=== PATIENT | female | born 1945 | race Asian ===

== ENCOUNTER → 2018-03-21 13:50 | Outpatient (REF) | payer MEDICARE, OTHER, SELFPAY | LOC: LAB 13:50 | PROVIDERS: Family Provider Family Medicine; PCP Family Medicine; Visit Provider Otolaryngology | DX: J32.0 Chronic maxillary sinusitis (principal); R51 Headache | CPT/HCPCS: 87070; 87077; 87147; 87186; 87205 ==

== ENCOUNTER → 2018-10-01 12:58 | Outpatient (CLI) | payer MEDICARE, OTHER, SELFPAY ==
--- NOTE | 2018-10-01 | DI.MG.S_ITS ---
BILATERAL DIGITAL SCREENING MAMMOGRAM 3D/2D WITH CAD: 10/01/2018 CLINICAL: Routine screening. Comparison is made to exams dated: 08/11/2017 mammogram, 07/28/2016 mammogram, and 06/18/2015 mammogram - [facility]. The tissue of both breasts is heterogeneously dense. This may lower the sensitivity of mammography. Current study was also evaluated with a Computer Aided Detection (CAD) system. There are benign post operative findings in the right breast. No significant masses, calcifications, or other findings are seen in either breast. There has been no significant interval change. IMPRESSION: There is no mammographic evidence of malignancy. A 1 year screening mammogram is recommended. This exam was interpreted at Station ID: [id number]. NOTE: For mammograms, a report in lay terms will be sent to the patient. Approximately 15% of breast malignancies will not be visualized mammographically. In the management of a palpable breast mass, a negative mammogram must not discourage biopsy of a clinically suspicious lesion. Electronically Signed By: Julien judd/ceci:10/01/2018 17:35:49 letter sent: Normal Exam ACR BI-RADS Category 2: Benign Finding(s) 3342F
== END ==
PROVIDERS: Family Provider Family Medicine; PCP Family Medicine; Visit Provider Family Medicine
DX: Z12.31 Encounter for screening mammogram for malignant neoplasm of breast (principal)
CPT/HCPCS: 77063; 77067

== ENCOUNTER → 2019-07-04 16:41 | Outpatient (CLI) | payer MEDICARE, OTHER, SELFPAY ==
--- NOTE | 2019-07-04 | DI.RAD.S_ITS ---
PROCEDURE: XR HIP W PEL IF DONE RT 2V INDICATIONS: RIGHT HIP PAIN TECHNIQUE: 2 views of the hip were acquired. COMPARISON: [facility], [place], [id number] W PEL IF PERFORMED, 07/28/2016, 11:57. [facility], [place], HIP 2V RIGHT, 04/01/2014, 12:48. FINDINGS: Bones: No fractures or dislocations. No suspicious bony lesions. The visualized pelvic ring appears intact. Mild right hip and sacroiliac joint degeneration. Soft tissues: No suspicious soft tissue calcifications or masses. 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 Dictated by: Nubia Bach M.D. on 07/04/2019 at 17:46 Approved by: Nubia Bach M.D. on 07/04/2019 at 18:50
== END ==
PROVIDERS: PCP Family Medicine; Visit Provider Family Medicine
DX: M25.551 Pain in right hip (principal); M16.11 Unilateral primary osteoarthritis, right hip; M47.898 Other spondylosis, sacral and sacrococcygeal region
CPT/HCPCS: 73502

== ENCOUNTER → 2019-10-08 14:27 | Outpatient (CLI) | payer MEDICARE, OTHER, SELFPAY ==
--- NOTE | 2019-10-08 | DI.MG.S_ITS ---
BILATERAL DIGITAL SCREENING MAMMOGRAM 3D/2D WITH CAD: 10/08/2019 CLINICAL: Routine screening. Comparison is made to exams dated: 10/01/2018 mammogram, 08/11/2017 mammogram, and 07/28/2016 mammogram - [facility]. There are scattered fibroglandular elements in both breasts. Current study was also evaluated with a Computer Aided Detection (CAD) system. There are benign post operative findings in the right breast. No significant masses, calcifications, or other findings are seen in either breast. There has been no significant interval change. IMPRESSION: There is no mammographic evidence of malignancy. A 1 year screening mammogram is recommended. This exam was interpreted at Station ID: [id number]. NOTE: For mammograms, a report in lay terms will be sent to the patient. Approximately 15% of breast malignancies will not be visualized mammographically. In the management of a palpable breast mass, a negative mammogram must not discourage biopsy of a clinically suspicious lesion. Electronically Signed By: Kitty mercedes/ceci:10/08/2019 17:06:18 letter sent: Normal Exam ACR BI-RADS Category 2: Benign Finding(s) 3342F
== END ==
PROVIDERS: PCP Family Medicine; Visit Provider Family Medicine
DX: Z12.31 Encounter for screening mammogram for malignant neoplasm of breast (principal)
CPT/HCPCS: 77063; 77067

== ENCOUNTER → 2020-08-21 13:44 | Outpatient (CLI) | payer MEDICARE, OTHER, SELFPAY ==
--- NOTE | 2020-08-21 | DI.CT.S_ITS ---
PROCEDURE: CT SINUS SCREEN WO CON INDICATIONS: Headache TECHNIQUE: Noncontrast 3.0 mm axial images acquired from the frontal sinuses to the mid-sella, with coronal and sagittal reformats. For radiation dose reduction, the following was used: automated exposure control, adjustment of mA and/or kV according to patient size. COMPARISON: None. FINDINGS: Image quality: Excellent. Maxillary Sinuses: Postsurgical changes of right maxillary side es medial antrostomy, uncinectomy, and adjacent anterior ethmoid air cell resection/fenestration. Mild mucosal thickening in the right maxillary sinus along with pronounced thickening of the right maxillary sinus kiser and volume loss in the right maxillary sinus. No fluid level. The left maxillary sinus is clear. Ethmoid Air Cells: No bony remodeling or destruction. Sinuses are clear. Sphenoid Sinuses: No bony remodeling or destruction. Sinuses are clear. Frontal Sinuses: No bony remodeling or destruction. Sinuses are clear. Ostiomeatal Complexes: Ostiomeatal complexes are patent. No Justina cells. Miscellaneous: Visualized intra-orbital contents are normal. Left-sided tobias bullosa. Mild S shaped nasal septal deviation. IMPRESSION: Minimal right maxillary sinus mucosal thickening with no evidence of acute sinusitis. Postsurgical changes of prior right maxillary sinus medial antrostomy and uncinectomy, with osseous findings indicative of chronic sinusitis. Dictated by: David Velasquez M.D. on 08/21/2020 at 14:23 Approved by: David Velasquez M.D. on 08/21/2020 at 14:25
--- NOTE | 2020-08-21 | DI.CT.S_ITS ---
PROCEDURE: CT HEAD/BRAIN WO CON INDICATIONS: Headache TECHNIQUE: Noncontrast 4.5 mm thick angled axial sections acquired from the foramen magnum to the vertex, with coronal and sagittal reformats. For radiation dose reduction, the following was used: automated exposure control, adjustment of mA and/or kV according to patient size. COMPARISON: 08/29/[address] FINDINGS: Image quality: Excellent. CSF spaces: Basal cisterns are patent. No extra-axial fluid collections. Ventricles are normal in size and shape. Brain: No midline shift. No intracranial masses or hemorrhage. Hernandez-white matter interface is normal. Skull and face: Calvarium and visualized facial bones are intact, without suspicious lesions. Sinuses: Visualized sinuses and mastoids are clear where visualized. IMPRESSION: No acute intracranial finding. Dictated by: David Velasquez M.D. on 08/21/2020 at 14:22 Approved by: David Velasquez M.D. on 08/21/2020 at 14:23
== END ==
PROVIDERS: PCP Family Medicine; Referring Provider Family Medicine; Visit Provider Family Medicine
DX: R51.9 Headache, unspecified (principal); J32.0 Chronic maxillary sinusitis; J34.2 Deviated nasal septum
CPT/HCPCS: 70450; 70486

== ENCOUNTER → 2020-12-11 14:27 | Outpatient (CLI) | payer MEDICARE, OTHER, SELFPAY ==
--- NOTE | 2020-12-11 14:29 | DI.MG.S_ITS ---
BILATERAL DIGITAL SCREENING MAMMOGRAM 3D/2D WITH CAD: 12/11/2020 CLINICAL: Routine screening. Comparison is made to exams dated: 10/08/2019 mammogram, 10/01/2018 mammogram, and 08/11/2017 mammogram - [facility]. There are scattered fibroglandular elements in both breasts. Current study was also evaluated with a Computer Aided Detection (CAD) system. There are benign post operative findings in the right breast. No significant masses, calcifications, or other findings are seen in either breast. There has been no significant interval change. IMPRESSION: BENIGN There is no mammographic evidence of malignancy. A 1 year screening mammogram is recommended. This exam was interpreted at Station ID: [id number]. NOTE: For mammograms, a report in lay terms will be sent to the patient. Approximately 15% of breast malignancies will not be visualized mammographically. In the management of a palpable breast mass, a negative mammogram must not discourage biopsy of a clinically suspicious lesion. Electronically Signed By: Obey leach/ceci:12/11/2020 14:54:51 letter sent: Normal Exam ACR BI-RADS Category 2: Benign Finding(s) 3342F
== END ==
PROVIDERS: PCP Family Medicine; Referring Provider Family Medicine; Visit Provider Family Medicine
DX: Z12.31 Encounter for screening mammogram for malignant neoplasm of breast (principal)
CPT/HCPCS: 77063; 77067

== ENCOUNTER 2020-12-18 16:35 | Emergency (ER) | payer MEDICARE, OTHER, SELFPAY ==
[2020-12-18 16:52] VITALS: PULSE 91; RESP 20; TEMP 36.5; O2SAT 99; BMI 27.5
--- NOTE | 2020-12-18 16:58 | DI.RAD.S_ITS ---
PROCEDURE: XR SHOULDER LT MIN 2V INDICATIONS: fall TECHNIQUE: 3 views of the shoulder were acquired. COMPARISON: None. FINDINGS: Bones: No fractures or dislocations. Mild to moderate acromioclavicular joint and glenohumeral joint osteoarthritic changes are seen. No suspicious bony lesions. Visualized ribs appear intact. Soft tissues: No suspicious soft tissue calcifications. IMPRESSION: No gross acute left shoulder fracture or dislocation. [id number]-[id number] left shoulder joint osteoarthritis. Dictated by: Malik Cadena M.D. on 12/18/2020 at 17:45 Approved by: Malik Cadena M.D. on 12/18/2020 at 17:45
[2020-12-18 17:53] VITALS: PULSE 70
--- NOTE | 2020-12-18 18:01 | ED_ITS ---
HPI - Extremity Injury (Upper) General Chief Complaint: Extremity Injury, Upper Stated Complaint: Fall last night, left shoulder pain Time Seen by Provider: 12/18/20 18:01 Source: patient Mode of arrival: Family Vehicle Limitations: no limitations History of Present Illness HPI narrative: 75-year-old female comes emergency department with complaint of left shoulder pain. Patient states yesterday she tripped falling onto her left shoulder. She denies hitting her head. She has had some mild neck pain. Patient states she has pain with any movement of her shoulder particularly when she tries to abduct her shoulder or extended above her head. Patient denies any pain radiating down her arm. No numbness, tingling or weakness. No difficulty with upholstery sewer. She denies any other injuries. She did try Tylenol today at 3:00 p.m. with minimal improvement. She is a insulin-dependent diabetic, takes hypertensive and cholesterol medication has not prior history of bypass and takes an aspirin 81 mg daily. Patient has multiple allergies to pain medications. Related Data Home Medications Medication Instructions Recorded Confirmed CALCIUM/CHOLECALCIFEROL (CALCIUM 1 ctb PO Q DAY #0 11/25/11 10/08/19 WITH D3 500MG/400UNITS) VITAMIN D (Vitamin D3) 1,000 unit PO QDAY #0 11/25/11 10/08/19 aspirin 81 mg PO QDAY #0 11/25/11 10/08/19 INSULIN LISPRO (#HUMALOG (SHORT See Rx Instructions .ROUTE 05/18/12 10/08/19 ACTING)) .COMPLEX #0 METFORMIN HCL (GLUCOPHAGE) 500 mg PO TID #0 05/18/12 10/08/19 Loratadine 10 mg PO Q DAY #0 05/23/13 10/08/19 naproxen sodium [Aleve] 220 mg PO Q DAY #0 05/23/13 10/08/19 omeprazole magnesium [Prilosec OTC] 20 mg PO #0 03/20/17 10/08/19 metoprolol tartrate 25 mg tablet 25 mg PO BID #0 tab 02/13/18 10/08/19 pravastatin 20 mg tablet 10 mg PO HS #0 tab 09/25/18 10/08/19 dulaglutide 0.75 mg/0.5 mL 0.75 mg SUBCUT QWEEK 10/08/19 10/08/19 subcutaneous pen injector Allergies Allergy/AdvReac Type Severity Reaction Status Date / Time adhesive [ADHESIVE] Allergy Mild RASH Verified 12/18/20 16:57 gabapentin [GABAPENTIN] Allergy Mild Verified 12/18/20 16:57 propoxyphene Allergy Mild Verified 12/18/20 16:57 tramadol [TRAMADOL] Allergy Mild Verified 12/18/20 16:57 hydrocodone [HYDROCODONE] AdvReac Unknown VOMITING Verified 12/18/20 16:57 oxycodone [OXYCODONE] AdvReac Unknown LIGHT Verified 12/18/20 16:57 HEADED Review of Systems Review of Systems ROS Unobtainable: All systems reviewed & are unremarkable except as noted in HPI and below Patient History Medical History (Updated 12/18/20 @ 18:12 by Gauri Souza DO) Anemia Ankle pain Asthma Back pain Cardiovascular disease (with mention of arteriosclerosis) Chronic cough Coronary artery disease involving coronary bypass graft Diabetes 1.5, managed as type 2 Foot pain GERD (gastroesophageal reflux disease) Gout H/O diverticulitis of colon H/O headache Hemorrhoids HPV test positive Human papilloma virus Hx of abnormal cervical Pap smear Hypertension Osteoarthritis Overweight Positive PPD Postmenopausal Recurrent sinusitis Restless leg syndrome Shoulder pain Thalassemia Surgical History Anesthesia H/O colonoscopy H/O LEEP (~2012) History of open heart surgery S/P triple vessel bypass Status post breast biopsy Family History Brother Diabetes mellitus Hypertension Brother Diabetes mellitus Hypertension Mother Diabetes mellitus Heart disease Hypertension Social History household members: spouse Smoking Status: Never smoker alcohol intake: never Smoking Status: Never smoker alcohol intake frequency: 0-2 drinks per day Substance Use Type: does not use Exam Narrative Exam Narrative: GEN: CPatient appears in mild distress. HEAD: No evidence of trauma, no raccoon/Milligan sign. NECK: Nontender, painless range of motion, trachea midline Negative Nexus criteria, there is no mid line tenderness, distracting injury, altered mental status, neuro deficit, recent EtOH. EYES: PERRLA, EOMI ENT: External inspection normal, trachea is midline, airway is normal and with normal occlusion. RESP: Chest is nontender and has symmetric movement, no ecchymosis, breath sounds are normal no crackles, wheezes or rales CVS: Heart sounds are normal, no murmur noted, No JVD. ABG/GI: Nontender, soft, normal bowel sounds, no distention, no organomegaly. NEURO: Oriented AOx3, neuro is grossly intact, sensation and motor is normal all 4 extremities moving, cranial nerves II through XII are intact, GCS is 15 PSYCH: Normal mood and affect SKIN: Intact, warm and dry, no crepitus and without decubitus BACK: No CVA tenderness, no vertebral tenderness, no step-off's, no crepitus EXT: Patient has tenderness over the left AC joint on her shoulder. No other bony tenderness of the clavicle, scapula, or left upper extremity. Patient has full range of motion of the fingers, wrist and elbow. 5/5 muscle strength with pushing pulling system validation engineer are equal bilaterally. With 2+ radial pulse bilaterally. Patient has a erythematous abrasion, no warmth to the area. No significant swelling appreciated. hips are nontender, no pedal edema, normal color and temperature, normal range of motion of extremities with normal tendon exam, 2+ pulses in all four extremities Initial Vital Signs Initial Vital Signs: Vital Signs Temperature 97.7 F 12/18/20 16:52 Pulse Rate 91 H 12/18/20 16:52 Respiratory Rate 20 12/18/20 16:52 Pulse Oximetry 99 12/18/20 16:52 Course Orders Ordered: ED Orders 12/18/20 16:58 XR shoulder LT min 2V Stat Vital Signs Vital signs: Vital Signs - 8 hr 12/18/20 16:52 12/18/20 17:53 Temperature 97.7 F Pulse Rate 91 H Pulse Rate [Left Radial] 70 Respiratory Rate 20 Pulse Oximetry 99 MDM - Extremity Injury (Upper) Imaging Data Extremity x-ray #1: Radiologist's Impression: [address] [id number] ReportSigned Patient: Kathy Lemon RMR#: [id number]: 6Acct:[id number]/Sex: 75 / FDate of Service: 12/18/20Loc: EDAccession Number: [id number] Procedure: XR shoulder LT min 2V Ordering Provider: Gauri Souza D.O. PROCEDURE: XR SHOULDER LT MIN 2V INDICATIONS: fall TECHNIQUE: 3 views of the shoulder were acquired. COMPARISON: None. FINDINGS: Bones: No fractures or dislocations. Mild to moderate acromioclavicular joint and glenohumeral joint osteoarthritic changes are seen. No suspicious bony lesions. Visualized ribs appear intact. Soft tissues: No suspicious soft tissue calcifications. IMPRESSION: No gross acute left shoulder fracture or dislocation. [id number] left shoulder joint osteoarthritis. Dictated by: Malik Cadena M.D. on 12/18/2020 at 17:45 Approved by: Malik Cadena M.D. on 12/18/2020 at 17:45 [facility] Narrative Medical decision making narrative: 75-year-old female with mechanical ground level fall. Patient does not have any acute abnormalities on imaging. She does have arthritic changes noted. Patient is tender and we discussed she could potentially have a muscle tear or ligamentous or tendon injury and if she continues to have symptoms should follow up with primary care. Patient plans to try Tylenol and ibuprofen or Aleve we discussed she should not take to NSAIDs at the same time sling. Patient is aware to continue with her range of motion. If she is asymptomatic after several days she can restart her normal activities. Discharge Plan Departure Patient Disposition: Home Clinical Impression: Left shoulder pain Instructions: DI for Shoulder Pain Activity Restrictions/Additional Instructions: Follow up with your physician in the next 7-10 days if her symptoms have not improved. You may take Tylenol up to a 1000 mg every 8 hours as needed for pain. You may take this with Aleve twice daily. You may use heat and or alternate with ice as needed. Elevated affected body part to decrease swelling. OK to use ice pack on the affected body part. Use for 15-20 minutes each time, for 5-6x per day. If you develop worsening pain, numbness, tingling, discoloration of the affected body part, adjust the sling and either see your doctor for an urgent re-assessment, or return to the Emergency Department. Return to the Emergency Department for any new or worsening symptoms. Return for fevers, rapidly worsening shoulder pain, new numbness, tingling or weakness, new redness, swelling or inability usually extremity or other new or worsening symptoms Prescriptions: No Action VITAMIN D (Vitamin D3) 1,000 unit PO QDAY Qty: 0 RF: 0 CALCIUM/CHOLECALCIFEROL (CALCIUM WITH D3 500MG/400UNITS) 1 ctb PO Q DAY Qty: 0 RF: 0 aspirin 81 MG tablet,delayed release (DR/EC) 81 mg PO QDAY Qty: 0 RF: 0 METFORMIN HCL (GLUCOPHAGE) 500 mg PO TID Qty: 0 RF: 0 INSULIN LISPRO (#HUMALOG (SHORT ACTING)) bottle See Rx Instructions .ROUTE .COMPLEX Qty: 0 RF: 0 Loratadine 10 mg PO Q DAY Qty: 0 RF: 0 naproxen sodium [Aleve] 220 MG tablet 220 mg PO Q DAY Qty: 0 RF: 0 omeprazole magnesium [Prilosec OTC] 20 MG tablet,delayed release (DR/EC) 20 mg PO Qty: 0 RF: 0 metoprolol tartrate 25 mg tablet 25 mg PO BID Qty: 0 RF: 0 pravastatin [Pravachol] 20 mg tablet 10 mg PO HS Qty: 0 RF: 0 Trulicity 0.75 mg/0.5 mL pen injector 0.75 mg SUBCUT QWEEK RF: 0 Referrals: Gerson Marquez MD [Primary Care Provider] -
[2020-12-18 18:20] VITALS: PULSE 70; RESP 17; O2SAT 99
== END 2020-12-18 18:21 | disposition home or self-care (01) ==
PROVIDERS: Emergency Provider Emergency Medicine; PCP Family Medicine
DX: M25.512 Pain in left shoulder (principal); M54.2 Cervicalgia; W19.XXXA Unspecified fall, initial encounter
CPT/HCPCS: 73030; 99283

== ENCOUNTER → 2022-01-03 12:07 | Outpatient (CLI) | payer MEDICARE, OTHER, SELFPAY ==
--- NOTE | 2022-01-03 12:13 | DI.RAD.S_ITS ---
PROCEDURE: XR CHEST 2V INDICATIONS: shortness of breath, cellulitis of left upper limb TECHNIQUE: 2 views of the chest were acquired. COMPARISON: None. FINDINGS: Surgical changes and devices: Status post CABG procedure. Lungs and pleura: Lungs are clear. No pleural effusions or pneumothorax. Mediastinum: Mediastinal contours are normal. Heart size is normal. Bones and chest wall: No suspicious bony abnormalities. Soft tissues appear unremarkable. No soft tissue gas identified. IMPRESSION: No acute cardiopulmonary disease process. Dictated by: Shama Lockhart MD, PhD on 01/03/2022 at 15:58 Approved by: Shama Lockhart MD, PhD on 01/03/2022 at 15:58
--- NOTE | 2022-01-03 12:13 | DI.RAD.S_ITS ---
PROCEDURE: XR HAND LT MIN 3V INDICATIONS: cellulitis of left upper limb TECHNIQUE: 3 views of the hand(s) acquired. COMPARISON: None. FINDINGS: Bones: No fractures or dislocations. Carpal bones are normally aligned. No suspicious bony lesions. Soft tissues: No suspicious soft tissue calcifications. IMPRESSION: No acute fracture. No osseous lesion. If symptoms and/or clinical suspicion for pathology persist, further assessment with repeat, or advanced imaging (e.g., CT, MRI, or bone scan) may be helpful for further assessment. Dictated by: Anamika Jones M.D. on 01/03/2022 at 13:22 Approved by: Anamika Jones M.D. on 01/03/2022 at 13:23
== END ==
PROVIDERS: PCP Family Medicine; Referring Provider Family Medicine; Visit Provider Family Medicine
DX: L03.114 Cellulitis of left upper limb (principal); R06.02 Shortness of breath
CPT/HCPCS: 71046; 73130

== ENCOUNTER 2022-02-02 20:18 | Emergency (ER) | payer MEDICARE, OTHER, SELFPAY ==
[2022-02-02] VITALS (9 sets, daily range): BP systolic 121–178; BP diastolic 63–83; PULSE 84–115; RESP 16–31; TEMP 36.8; O2SAT 97–99; BMI 29.2
--- NOTE | 2022-02-02 20:40 | ED_ITS ---
HPI - General Adult General Chief complaint: Diabetic Problem Stated complaint: Dizzy,low blood sugar Time Seen by Provider: 02/02/22 20:40 Source: patient and EMS Mode of arrival: EMS History of Present Illness HPI narrative: Patient is a 76-year-old female history of insulin-dependent diabetes coronary artery disease hypertension presenting today with bright of symptoms. She has had decrease in her appetite she has not really much today but she also has not taken her insulin she felt very weak and dizzy which made her called the am bulance. She was found to have glucose of 53 she drink a Coke and it came up. Patient while in the ambulance started having chest heaviness for that she received 3 nitroglycerin and aspirin. She now complains of headache and some mild chest heaviness. Although much improved. It is not radiating does not go up to her jaw. She has no numbness tingling or weakness. Previously she did have some mild right-sided weakness her glucose was low. That seems to be better. She denies any nausea or vomiting no abdominal pain no shortness of breath. She has not had fever or chills. Related Data Home Medications Medication Instructions Recorded Confirmed CALCIUM/CHOLECALCIFEROL (CALCIUM 1 ctb PO Q DAY #0 11/25/11 12/29/20 WITH D3 500MG/400UNITS) VITAMIN D (Vitamin D3) 1,000 unit PO QDAY #0 11/25/11 12/29/20 aspirin 81 mg tablet,delayed 81 mg PO QDAY #0 11/25/11 12/29/20 release INSULIN LISPRO (#HUMALOG (SHORT See Rx Instructions .ROUTE 05/18/12 12/29/20 ACTING)) .COMPLEX #0 METFORMIN HCL (GLUCOPHAGE) 500 mg PO TID #0 05/18/12 12/29/20 Loratadine 10 mg PO Q DAY #0 05/23/13 12/29/20 naproxen sodium 220 mg tablet 220 mg PO Q DAY #0 05/23/13 12/29/20 (Aleve) omeprazole magnesium 20 mg 20 mg PO #0 03/20/17 12/29/20 tablet,delayed release (Prilosec OTC) metoprolol tartrate 25 mg tablet 25 mg PO BID #0 tab 02/13/18 12/29/20 pravastatin 20 mg tablet 10 mg PO HS #0 tab 09/25/18 12/29/20 (Pravachol) dulaglutide 0.75 mg/0.5 mL 0.75 mg SUBCUT QWEEK 10/08/19 12/29/20 subcutaneous pen injector (Trulicity) Allergies Allergy/AdvReac Type Severity Reaction Status Date / Time adhesive [ADHESIVE] Allergy Mild RASH Verified 12/29/20 15:56 gabapentin [GABAPENTIN] Allergy Mild Verified 12/29/20 15:56 propoxyphene Allergy Mild Verified 12/29/20 15:56 tramadol [TRAMADOL] Allergy Mild Verified 12/29/20 15:56 hydrocodone [HYDROCODONE] AdvReac Unknown VOMITING Verified 12/29/20 15:56 oxycodone [OXYCODONE] AdvReac Unknown LIGHT Verified 12/29/20 15:56 HEADED Review of Systems Review of Systems Narrative: GENERAL: Denies chills, fatigue, malaise, fever, sweats, travel HEENT: Denies sinus pain, ear pain, sore throat, difficulty swallowing, neck pain RESPIRATORY: Denies dyspnea, cough, wheezing, hemoptysis, sputum. CARDIOVASCULAR: See HPI GASTROINTESTINAL: Denies nausea, vomiting, abdominal pain, diarrhea, constipation, melena. : Denies dysuria, frequency, incontinence, hematuria, urinary retention, flank pain. MUSCULOSKELETAL: Denies weakness, joint pain, or bony pain SKIN: No rash, no erythema, no pruritus NEUROLOGIC: See HPI PSYCHIATRIC: No concerning psychosocial issues. 12 point review of systems is negative except for those stated above and HPI Patient History Medical History (Updated 02/03/22 @ 03:17 by Chrissie Gold DO) Anemia Ankle pain Asthma Back pain Cardiovascular disease (with mention of arteriosclerosis) Chronic cough Coronary artery disease involving coronary bypass graft Diabetes 1.5, managed as type 2 Foot pain GERD (gastroesophageal reflux disease) Gout H/O diverticulitis of colon H/O headache Hemorrhoids HPV test positive Human papilloma virus Hx of abnormal cervical Pap smear Hypertension Osteoarthritis Overweight Positive PPD Postmenopausal Recurrent sinusitis Restless leg syndrome Shoulder pain Thalassemia Surgical History Anesthesia H/O colonoscopy H/O LEEP (~2012) History of open heart surgery S/P triple vessel bypass Status post breast biopsy Family History Brother Diabetes mellitus Hypertension Brother Diabetes mellitus Hypertension Mother Diabetes mellitus Heart disease Hypertension Social History household members: spouse Smoking Status: Never smoker alcohol intake: never Smoking Status: Never smoker alcohol intake frequency: 0-2 drinks per day Substance Use Type: does not use Exam Initial Vital Signs Initial Vital Signs: Vital Signs Temperature 98.2 F 02/02/22 20:20 Pulse Rate 100 H 02/02/22 20:20 Respiratory Rate 17 02/02/22 20:20 Blood Pressure 175/83 H 02/02/22 20:20 Pulse Oximetry 99 02/02/22 20:20 GENERAL: Alert well-appearing 76-year-old female in no acute distress. HEENT: Head atraumatic,EOMI, pupils reactive, face symmetric, moist mucous membranes CARDIOVASCULAR: Regular rate and rhythm without murmurs, rubs or gallops. RESPIRATORY: Breath sounds equal bilaterally, no wheezes rales or rhonchi. ABDOMEN: Soft, nontender. Normoactive bowel sounds all 4 quadrants. No guarding or rebound.s EXTREMITIES: Normal range of motion, no clubbing or edema. Neurovascularly intact NEUROLOGICAL: Alert and oriented x4.Normal gait and speech. Cranial nerves II through XII grossly intact. Good [id number], good [id number], strength equal bilaterally, no dysarthria or aphasia, sensation in tact to soft touch bilaterally, no visual changes, no facial droop SKIN: Warm, dry, no laceration, no petechiae, no rashes or lesions. Scores NIH Stroke Scale Level of Conciousness: Alert, keenly responsive Ask month/age: Answers both questions correctly. Open/close eyes, close hand: Performs both tasks correctly Best gaze horizontal: Normal Visual browne: No visual loss Facial palsy: Normal symetrical movement Left arm drift: No drift for full 10 sec Right arm drift: No drift for full 10 sec Left leg drift: No drift for full 5 sec Right leg drift: No drift for full 5 sec Limb ataxia: Absent Sensory on face/arms/legs: Normal, no sensory loss Best language: No aphasia, normal Dysarthria: Normal Extinction or inattention: No abnormality Total NIH Stroke scale score: 0 Course Orders Ordered: ED Orders 02/02/22 20:30 Urine Microscopic Stat 02/02/22 20:48 CT head/brain wo con Stat XR chest 1V Stat EKG-12 Lead Stat 02/02/22 21:22 Complete Blood Count AUTO DIFF Stat Comprehensive Metabolic Panel Stat Lipase Stat Troponin & CK Cardiac Panel Stat 02/02/22 23:18 Trop I [Troponin I] Stat 02/03/22 EKG-12 Lead Routine 02/03/22 00:26 PT [Prothrombin Time INR] Stat PTT [Partial Thromboplastin Time] Stat 02/03/22 00:35 Partial Thromboplastin Time Stat Prothrombin Time INR Stat 02/03/22 01:26 COVID19 -Nasal RAPID/Pre-Proc Stat Sodium Chloride (Normal Saline 0.9%) 1,000 mls @ 150 mls/hr IV CONT CHERYL Last Admin: 02/02/22 21:37 Dose: 150 mls/hr Documented by: SARAH Heparin Sodium/Dextrose (Heparin Drip) 25,000 unit in 500 mls @ 17.418 mls/hr IV CONT CHERYL; Protocol Last Admin: 02/03/22 00:49 Dose: 12 units/kg/hr, 17.418 mls/hr Documented by: SARAH Discontinued Medications Heparin Sodium (Porcine) (Heparin 5,000 Unit/Ml Vial) 4,000 unit IV NOW ONE Stop: 02/03/22 00:27 Last Admin: 02/03/22 00:49 Dose: 4,000 unit Documented by: SARAH Vital Signs Vital signs: Vital Signs - 8 hr 02/02/22 20:20 02/02/22 20:24 02/02/22 20:26 Temperature 98.2 F Pulse Rate 100 H 112 H 115 H Respiratory Rate 17 16 Blood Pressure 175/83 H 178/83 H Pulse Oximetry 99 98 97 02/02/22 20:30 02/02/22 21:00 02/02/22 22:10 Temperature Pulse Rate 111 H 101 H 91 H Respiratory Rate 27 H 31 H Blood Pressure 175/83 H 159/73 H 139/65 Pulse Oximetry 97 97 02/02/22 22:30 02/02/22 23:00 02/02/22 23:30 Temperature Pulse Rate 90 84 87 Respiratory Rate 19 17 19 Blood Pressure 133/63 121/65 130/63 Pulse Oximetry 97 97 97 02/03/22 00:00 02/03/22 00:30 02/03/22 01:00 Temperature Pulse Rate 85 84 86 Respiratory Rate 17 20 19 Blood Pressure 127/60 135/63 146/65 H Pulse Oximetry 97 98 97 02/03/22 01:30 02/03/22 02:00 02/03/22 02:30 Temperature Pulse Rate 90 84 86 Respiratory Rate 46 H 19 17 Blood Pressure 151/68 H 139/64 133/61 Pulse Oximetry 97 96 97 Medical Decision Making Lab Data Result diagrams: 02/02/22 21:02/02/22 21: Labs: Lab Results 02/02/22 02/02/22 02/02/22 Range/Units 20:30 21:22 21:22 WBC 9.5 (4.5-11.0) X10^3/uL RBC 4.96 (4.0-5.2) X10^6/uL Hgb 10.5 L (12.0-16.0) g/dL Hct 34.1 L (36-46) % MCV 68.8 L (80-100) fL MCH 21.1 L (26-34) PG MCHC 30.7 (30-36) % RDW 17.3 H (11.6-14.8) % Plt Count 312 (150-400) X10^3/uL Neut % (Auto) 78.0 H (50-75) % Lymph % (Auto) 16.2 L (25-40) % [place] % (Auto) 4.1 (3-14) % Eos % (Auto) 1.1 L (2-4) % Baso % (Auto) 0.6 (0-2) % Neut # (Auto) 7500 H (3408-2240) /uL Lymph # (Auto) 1500 (7471-4509) /uL [place] # (Auto) 400 (0-900) /uL Eos # (Auto) 100 (0-450) /uL Baso # (Auto) 100 (0-100) /uL RBC Morphology See below Polychromasia 1+ H Hypochromasia 1+ H Microcytosis 1+ H PT (10.1-12.7) SECONDS INR (0.9-1.3) APTT (26.4-36.2) SECONDS Sodium 137 (137-145) mmol/L Potassium 4.1 (3.4-5.1) mmol/L Chloride 103 (98-107) mmol/L Carbon Dioxide 24 (22-32) mmol/L BUN 22 H (7-17) mg/dL Creatinine 1.02 (0.52-1.04) mg/dL Estimated GFR 57 L (>60) mL/min BUN/Creatinine Ratio 21.6 (6-22) Glucose 179 H (80-110) mg/dL Calcium 8.8 (8.4-10.2) mg/dL Total Bilirubin 0.4 (0.2-1.3) mg/dL AST 41 H (14-36) IU/L ALT 25 (<35) IU/L Alkaline Phosphatase 103 (38-126) U/L Total Creatine Kinase 88 (30-135) U/L CK-MB (CK-2) TNP CK-MB (CK-2) Rel Index TNP Troponin I 0.050 H (0.01-0.034) ng/mL Total Protein 8.5 H (6.3-8.2) g/dL Albumin 4.5 (3.5-5.0) g/dL Globulin 4.0 (1.7-4.1) g/dL Albumin/Globulin Ratio 1.1 (1.0-2.8) Lipase 66 (23-300) U/L Urine RBC 0-1/hpf (0-5/HPF) Urine WBC 0-1/hpf (0-5/HPF) Ur Squamous Epith Cells 0-1 /hpf (0-5/HPF) Urine Bacteria None seen (None) Ur Culture Indicated? Cult not indicated SARS-CoV-2 (PCR) (Negative) 02/02/22 02/02/22 02/03/22 Range/Units 21:22 23:18 00:35 WBC (4.5-11.0) X10^3/uL RBC (4.0-5.2) X10^6/uL Hgb (12.0-16.0) g/dL Hct (36-46) % MCV (80-100) fL MCH (26-34) PG MCHC (30-36) % RDW (11.6-14.8) % Plt Count (150-400) X10^3/uL Neut % (Auto) (50-75) % Lymph % (Auto) (25-40) % [place] % (Auto) (3-14) % Eos % (Auto) (2-4) % Baso % (Auto) (0-2) % Neut # (Auto) (2090-8435) /uL Lymph # (Auto) (9514-8914) /uL [place] # (Auto) (0-900) /uL Eos # (Auto) (0-450) /uL Baso # (Auto) (0-100) /uL RBC Morphology Polychromasia Hypochromasia Microcytosis PT 10.6 10.8 (10.1-12.7) SECONDS INR 1.0 1.0 (0.9-1.3) APTT 32 31 (26.4-36.2) SECONDS Sodium (137-145) mmol/L Potassium (3.4-5.1) mmol/L Chloride (98-107) mmol/L Carbon Dioxide (22-32) mmol/L BUN (7-17) mg/dL Creatinine (0.52-1.04) mg/dL Estimated GFR (>60) mL/min BUN/Creatinine Ratio (6-22) Glucose (80-110) mg/dL Calcium (8.4-10.2) mg/dL Total Bilirubin (0.2-1.3) mg/dL AST (14-36) IU/L ALT (<35) IU/L Alkaline Phosphatase (38-126) U/L Total Creatine Kinase (30-135) U/L CK-MB (CK-2) CK-MB (CK-2) Rel Index Troponin I 0.319 H* (0.01-0.034) ng/mL Total Protein (6.3-8.2) g/dL Albumin (3.5-5.0) g/dL Globulin (1.7-4.1) g/dL Albumin/Globulin Ratio (1.0-2.8) Lipase (23-300) U/L Urine RBC (0-5/HPF) Urine WBC (0-5/HPF) Ur Squamous Epith Cells (0-5/HPF) Urine Bacteria (None) Ur Culture Indicated? SARS-CoV-2 (PCR) (Negative) 02/03/22 Range/Units 01:26 WBC (4.5-11.0) X10^3/uL RBC (4.0-5.2) X10^6/uL Hgb (12.0-16.0) g/dL Hct (36-46) % MCV (80-100) fL MCH (26-34) PG MCHC (30-36) % RDW (11.6-14.8) % Plt Count (150-400) X10^3/uL Neut % (Auto) (50-75) % Lymph % (Auto) (25-40) % [place] % (Auto) (3-14) % Eos % (Auto) (2-4) % Baso % (Auto) (0-2) % Neut # (Auto) (6585-7303) /uL Lymph # (Auto) (9649-9342) /uL [place] # (Auto) (0-900) /uL Eos # (Auto) (0-450) /uL Baso # (Auto) (0-100) /uL RBC Morphology Polychromasia Hypochromasia Microcytosis PT (10.1-12.7) SECONDS INR (0.9-1.3) APTT (26.4-36.2) SECONDS Sodium (137-145) mmol/L Potassium (3.4-5.1) mmol/L Chloride (98-107) mmol/L Carbon Dioxide (22-32) mmol/L BUN (7-17) mg/dL Creatinine (0.52-1.04) mg/dL Estimated GFR (>60) mL/min BUN/Creatinine Ratio (6-22) Glucose (80-110) mg/dL Calcium (8.4-10.2) mg/dL Total Bilirubin (0.2-1.3) mg/dL AST (14-36) IU/L ALT (<35) IU/L Alkaline Phosphatase (38-126) U/L Total Creatine Kinase (30-135) U/L CK-MB (CK-2) CK-MB (CK-2) Rel Index Troponin I (0.01-0.034) ng/mL Total Protein (6.3-8.2) g/dL Albumin (3.5-5.0) g/dL Globulin (1.7-4.1) g/dL Albumin/Globulin Ratio (1.0-2.8) Lipase (23-300) U/L Urine RBC (0-5/HPF) Urine WBC (0-5/HPF) Ur Squamous Epith Cells (0-5/HPF) Urine Bacteria (None) Ur Culture Indicated? SARS-CoV-2 (PCR) Negative (Negative) Point of Care Testing Glucose POC 201 Urine Dip Bedside Urine Glucose Negative Bedside Urine Bilirubin - Negative Bedside Urine Ketone - Negative Urine Specific [place] 1.015 Bedside Urine Occult Blood - Negative Bedside Urine pH 6.0 Bedside Urine Protein ++ 100 Bedside Urine Urobilinogen - Negative Bedside Urine Nitrite - Negative Bedside Urine Leukocytes - Negative Esterase Point of care testing: Point of Care Testing Glucose POC 201 Urine Dip Bedside Urine Glucose Negative Bedside Urine Bilirubin - Negative Bedside Urine Ketone - Negative Urine Specific [place] 1.015 Bedside Urine Occult Blood - Negative Bedside Urine pH 6.0 Bedside Urine Protein ++ 100 Bedside Urine Urobilinogen - Negative Bedside Urine Nitrite - Negative Bedside Urine Leukocytes - Negative Esterase Imaging Data CT scan - head: Radiologist's Impression: Signed Patient: Kathy Lemon MR#: [id number] : 1945 Acct:[id number] Age/Sex: 76 / F Date of Service: 02/02/22 Loc: ED Accession Number: [id number] ?? Procedure: CT head/brain wo con Ordering Provider: Chrissie Gold D.O. PROCEDURE:? CT HEAD/BRAIN WO CON ? INDICATIONS:? weakness ? TECHNIQUE:? Noncontrast 4.5 mm thick angled axial sections acquired from the foramen magnum to the vertex, with coronal and sagittal reformats.? For radiation dose reduction, the following was used:? automated exposure control, adjustment of mA and/or kV according to patient size.? ? COMPARISON:? [facility], CT, CT HEAD/BRAIN WO CON, 08/21/2020, 14:00. ? FINDINGS:? Image quality:? Excellent.? ? CSF spaces:? Basal cisterns are patent.? No extra-axial fluid collections.? The ventricles are symmetric in size and shape.? ? Brain:? No intracranial bleeds or masses.? There is cerebral volume loss for age, with resultant ventricular and sulcal prominence.? There are periventricular and deep white matter chronic small vessel ischemic changes.? There is intracranial internal carotid artery atherosclerosis.? ? Skull and face:? Calvarium and visualized facial bones appear intact, without suspicious lesions.? ? Sinuses:? Visualized sinuses and mastoids are clear.? ? IMPRESSION:? ? 1. No CT evidence of acute intracranial process.? ? 2. Age-appropriate cerebral cortical volume loss and chronic microvascular ischemic changes. ? ? ? Dictated by: Mela Smart M.D. on 02/02/2022 at 22:16 ? ? Chest x-ray: Radiologist's Impression: Signed Patient: Kathy Lemon MR#: [id number] : 1945 Acct:[id number] Age/Sex: 76 / F Date of Service: 02/02/22 Loc: ED Accession Number: [id number] ?? Procedure: XR chest 1V Ordering Provider: Chrissie Gold D.O. PROCEDURE:? XR CHEST 1V ? INDICATIONS:? chest pain ? TECHNIQUE:? One view of the chest was acquired.? ? COMPARISON:? [facility], , XR CHEST 2V, 01/03/2022, 12:03. ? FINDINGS:? ? Surgical changes and devices:? Median sternotomy and CABG change. ? Lungs and pleura:? Lungs are clear.? No pleural effusions or pneumothorax.? ? Mediastinum:? Mediastinal contours appear normal.? Heart size is mildly enlarged.? ? Bones and chest wall:? No suspicious bony lesions.? Overlying soft tissues appear unremarkable.? ? IMPRESSION:? ? 1. Mild cardiomegaly with post CABG change. ? 2. No acute pulmonary parenchymal process.? ? ? Dictated by: Mela Smart M.D. on 02/02/2022 at 22:15 ? ? Approved by: Mela Smart M.D. on 02/02/2022 at 22:16 ? ECG Data Interpretation: Rhythm rate 100 p.r. interval 186 QRS [address] depression noted in V4 through V6 without ST elevation or T-wave inversions. EKG 2. Sinus rhythm rate [address] depression no ST-elevation MDM Narrative Medical decision making narrative: Patient initially is hypoglycemic but developed chest heaviness with EMS. She currently is chest pain-free. She is eating food glucose has improved. She has had intermittent dizziness but no focal deficits head CT is negative. She is found have her 1st initial troponin of 0.02nd 1 becomes positive at 0.3. She is started on heparin drip she previously received aspirin and nitro EMS. She says that she still has some intermittent chest discomfort in the ED but overall is chest pain-free. 0125 Dr. Lyman, cardiology updated patient's symptoms test results agrees with heparin rosalva agrees with transfer and recommends admitting to hospitalist Dr. Al, hospitalist has been a day patient's symptoms test results cardiology recommendations and kindly accepts. Critical Care Time Critical Care Time Critical Care Time: Yes Total Critical Care Time: 30 Attestation: The patient satisfied the definition of criticality in that they had a high probability of imminent deterioration of their conditon. Critical care time i ncludes time spent at the bedside, plus where appropriate: gathering information from family, EMS, old records, caregivers; interpretation of test results; and time spent discussing patient with other physicians Discharge Plan Departure Patient Disposition: [facility] Clinical Impression: Acute non-ST elevation myocardial infarction (NSTEMI), Hypoglycemia Prescriptions: No Action VITAMIN D (Vitamin D3) 1,000 unit PO QDAY Qty: 0 0RF CALCIUM/CHOLECALCIFEROL (CALCIUM WITH D3 500MG/400UNITS) 1 ctb PO Q DAY Qty: 0 0RF aspirin 81 MG tablet,delayed release (DR/EC) 81 mg PO QDAY Qty: 0 0RF METFORMIN HCL (GLUCOPHAGE) 500 mg PO TID Qty: 0 0RF INSULIN LISPRO (#HUMALOG (SHORT ACTING)) bottle See Rx Instructions .ROUTE .COMPLEX Qty: 0 0RF Label Comments: took 10 units this a.m. for blood sugar > 200's Rx Instructions: sliding scale as indicated Loratadine 10 mg PO Q DAY Qty: 0 0RF naproxen sodium [Aleve] 220 MG tablet 220 mg PO Q DAY Qty: 0 0RF omeprazole magnesium [Prilosec OTC] 20 MG tablet,delayed release (DR/EC) 20 mg PO Qty: 0 0RF metoprolol tartrate 25 mg tablet 25 mg PO BID Qty: 0 0RF pravastatin [Pravachol] 20 mg tablet 10 mg PO HS Qty: 0 0RF Trulicity 0.75 mg/0.5 mL pen injector 0.75 mg SUBCUT QWEEK 0RF Referrals: Gerson Marquez MD [Primary Care Provider] -
--- NOTE | 2022-02-02 20:48 | DI.RAD.S_ITS ---
PROCEDURE: XR CHEST 1V INDICATIONS: chest pain TECHNIQUE: One view of the chest was acquired. COMPARISON: [facility], CR, XR CHEST 2V, 01/03/2022, 12:03. FINDINGS: Surgical changes and devices: Median sternotomy and CABG change. Lungs and pleura: Lungs are clear. No pleural effusions or pneumothorax. Mediastinum: Mediastinal contours appear normal. Heart size is mildly enlarged. Bones and chest wall: No suspicious bony lesions. Overlying soft tissues appear unremarkable. IMPRESSION: 1. Mild cardiomegaly with post CABG change. 2. No acute pulmonary parenchymal process. Dictated by: Mela Smart M.D. on 02/02/2022 at 22:15 Approved by: Mela Smart M.D. on 02/02/2022 at 22:16
--- NOTE | 2022-02-02 20:48 | DI.CT.S_ITS ---
PROCEDURE: CT HEAD/BRAIN WO CON INDICATIONS: weakness TECHNIQUE: Noncontrast 4.5 mm thick angled axial sections acquired from the foramen magnum to the vertex, with coronal and sagittal reformats. For radiation dose reduction, the following was used: automated exposure control, adjustment of mA and/or kV according to patient size. COMPARISON: [facility], CT, CT HEAD/BRAIN WO CON, 08/21/2020, 14:00. FINDINGS: Image quality: Excellent. CSF spaces: Basal cisterns are patent. No extra-axial fluid collections. The ventricles are symmetric in size and shape. Brain: No intracranial bleeds or masses. There is cerebral volume loss for age, with resultant ventricular and sulcal prominence. There are periventricular and deep white matter chronic small vessel ischemic changes. There is intracranial internal carotid artery atherosclerosis. Skull and face: Calvarium and visualized facial bones appear intact, without suspicious lesions. Sinuses: Visualized sinuses and mastoids are clear. IMPRESSION: 1. No CT evidence of acute intracranial process. 2. Age-appropriate cerebral cortical volume loss and chronic microvascular ischemic changes. Dictated by: Mela Smart M.D. on 02/02/2022 at 22:16 Approved by: Mela Smart M.D. on 02/02/2022 at 22:17
[2022-02-02] MEDS: SODIUM CHLORIDE 0.9% 1,000 ML 150 ML IV (21:37)
[2022-02-02 21:43] LABS: Add Manual Diff / Slide Review NO; Basophils Absolute Auto 100 /uL (0-100); Basophils Percent Auto 0.6 % (0-2); Eosinophils Absolute Auto 100 /uL (0-450); Eosinophils Percent Auto 1.1 % (2-4); Hematocrit 34.1 % (36-46); Hemoglobin 10.5 g/dL (12.0-16.0); Lymphocytes Absolute Auto 1500 /uL (1100-4500); Lymphocytes Percent Auto 16.2 % (25-40); Mean Corpuscular HGB Conc 30.7 % (30-36); Mean Corpuscular Hemoglobin 21.1 PG (26-34); Mean Corpuscular Volume 68.8 fL (80-100); Monocytes Absolute Auto 400 /uL (0-900); Monocytes Percent Auto 4.1 % (3-14); Neutrophils Absolute Auto 7500 /uL (1500-7000); Platelet Count 312 X10^3/uL (150-400); Red Blood Cell Count 4.96 X10^6/uL (4.0-5.2); Red Cell Distribution Width 17.3 % (11.6-14.8); White Blood Cell Count 9.5 X10^3/uL (4.5-11.0)
[2022-02-02 21:44] LABS: Alanine Aminotransferase 25 IU/L (<35); Albumin 4.5 g/dL (3.5-5.0); Albumin Globulin Ratio 1.1 (1.0-2.8); Alkaline Phosphatase 103 U/L (38-126); Aspartate Aminotransferase 41 IU/L (14-36); BUN Creatinine Ratio 21.6 (6-22); Bilirubin Total 0.4 mg/dL (0.2-1.3); Blood Urea Nitrogen 22 mg/dL (7-17); Calcium 8.8 mg/dL (8.4-10.2); Carbon Dioxide 24 mmol/L (22-32); Chloride 103 mmol/L (98-107); Creatine Kinase 88 U/L (30-135); Estimated Glomerular Filt Rate 57 mL/min (>60); Glucose 179 mg/dL (80-110); HEMOLYSIS 37 (0-50); Lipase 66 U/L (23-300); Potassium 4.1 mmol/L (3.4-5.1); Sodium 137 mmol/L (137-145); Total Protein 8.5 g/dL (6.3-8.2)
[2022-02-02 22:06] LABS: Bacteria Urine None Seen; Culture Indicated Urine Cult Not Indicated; RBC Urine 0-1/HPF (0-5/HPF); Squamous Epithelial Cell Urine 0-1 /HPF (0-5/HPF); WBC Urine 0-1/HPF (0-5/HPF)
[2022-02-02 22:20] LABS: Hypochromasia 1+; Polychromasia 1+
[2022-02-02 22:21] LABS: Microcytosis 1+
[2022-02-03] VITALS (7 sets, daily range): BP systolic 127–161; BP diastolic 60–69; PULSE 84–90; RESP 17–46; O2SAT 96–98
[2022-02-03 00:20] LABS: Troponin I 0.319 ng/mL (0.01-0.034)
[2022-02-03 00:36] LABS: Prothrombin Time 10.6 SECONDS (10.1-12.7)
[2022-02-03 00:39] LABS: PTT Partial Thromboplastin Tim 32 SECONDS (26.4-36.2)
[2022-02-03] MEDS: HEPARIN DRIP 25,000 UNIT/500 ML IV.SOLN 17.418 UNIT IV (00:49)
[2022-02-03] MEDS: HEPARIN 5,000 UNIT/ML VIAL 4000 UNIT IV (00:49)
[2022-02-03 00:56] LABS: Prothrombin Time 10.8 SECONDS (10.1-12.7)
[2022-02-03 00:58] LABS: PTT Partial Thromboplastin Tim 31 SECONDS (26.4-36.2)
[2022-02-03 01:50] LABS: COVID19 -Nasal RAPID Negative (Negative)
== END 2022-02-03 03:37 | disposition short-term general hospital (02) ==
PROVIDERS: Emergency Provider Emergency Medicine; PCP Family Medicine
DX: I21.4 Non-ST elevation (NSTEMI) myocardial infarction (principal); E13.649 Other specified diabetes mellitus with hypoglycemia without coma; R53.1 Weakness; I10 Essential (primary) hypertension; Z79.84 Long term (current) use of oral hypoglycemic drugs; Z79.4 Long term (current) use of insulin; Z20.822 Contact with and (suspected) exposure to COVID-19; R42 Dizziness and giddiness
CPT/HCPCS: 36415; 70450; 71045; 80053; 81003; 81015; 82550; 82962; 83690; 84484; 85025; 85610; 85730; 87635; 93005; 96365; 96366; 96376; 99285; 99291; C9803; J1644

== ENCOUNTER 2022-03-12 20:29 | Observation (INO) | payer MEDICARE, OTHER, SELFPAY ==
[2022-03-12] VITALS (7 sets, daily range): BP systolic 110–184; BP diastolic 57–80; PULSE 98–106; RESP 20–36; TEMP 37.6–37.9; O2SAT 95–97; BMI 29.0
--- NOTE | 2022-03-12 20:48 | DI.RAD.S_ITS ---
PROCEDURE: XR CHEST 1V INDICATIONS: suspected sepsis TECHNIQUE: One view of the chest was acquired. COMPARISON: [facility], CR, XR CHEST 1V, 02/02/2022, 20:50. [facility], CR, XR CHEST 2V, 01/03/2022, 12:03. FINDINGS: Surgical changes and devices: Sternotomy wires, presumed prior CABG. Lungs and pleura: Lungs are mildly abnormal with a mild chronic interstitial prominence perhaps related to prior smoking history. No pleural effusions or pneumothorax. Mediastinum: Mediastinal contours appear normal. Heart size is normal. Bones and chest wall: No suspicious bony lesions. Overlying soft tissues appear unremarkable. IMPRESSION: Mild chronic interstitial prominence, no definite acute disease. No pneumonia found. Prior CABG. Dictated by: Hadley Steele M.D. on 03/12/2022 at 21:17 Approved by: Hadley Steele M.D. on 03/12/2022 at 21:18
[2022-03-12] MEDS: SODIUM CHLORIDE 0.9% 1,000 ML 1000 ML IV (21:29)
[2022-03-12 21:32] LABS: Alanine Aminotransferase 27 IU/L (<35); Albumin 4.5 g/dL (3.5-5.0); Albumin Globulin Ratio 1.1 (1.0-2.8); Alkaline Phosphatase 100 U/L (38-126); BUN Creatinine Ratio 22.4 (6-22); Bilirubin Total 0.4 mg/dL (0.2-1.3); Blood Urea Nitrogen 26 mg/dL (7-17); Carbon Dioxide 21 mmol/L (22-32); Chloride 102 mmol/L (98-107); Estimated Glomerular Filt Rate 49 mL/min (>60); Globulin 4.1 g/dL (1.7-4.1); Glucose 198 mg/dL (80-110); Lipase 94 U/L (23-300); Sodium 135 mmol/L (137-145); Total Protein 8.6 g/dL (6.3-8.2)
[2022-03-12 21:33] LABS: Basophils Absolute Auto 0 /uL (0-100); Basophils Percent Auto 0.3 % (0-2); Eosinophils Absolute Auto 200 /uL (0-450); Eosinophils Percent Auto 2.3 % (2-4); Hematocrit 30.7 % (36-46); Hemoglobin 9.8 g/dL (12.0-16.0); Lymphocytes Absolute Auto 800 /uL (1100-4500); Lymphocytes Percent Auto 8.4 % (25-40); Mean Corpuscular HGB Conc 31.7 % (30-36); Mean Corpuscular Hemoglobin 21.7 PG (26-34); Mean Corpuscular Volume 68.3 fL (80-100); Monocytes Absolute Auto 800 /uL (0-900); Monocytes Percent Auto 8.3 % (3-14); Neutrophils Absolute Auto 7900 /uL (1500-7000); Neutrophils Percent Auto 80.7 % (50-75); Platelet Count 317 X10^3/uL (150-400); Red Cell Distribution Width 17.3 % (11.6-14.8); White Blood Cell Count 9.8 X10^3/uL (4.5-11.0)
[2022-03-12 21:38] LABS: Lactate (Lactic Acid) 2.8 mmol/L (0.7-2.1)
[2022-03-12 21:41] LABS: HEMOLYSIS 61 (0-50); Potassium 5.8 mmol/L (3.4-5.1)
[2022-03-12 21:42] LABS: Aspartate Aminotransferase 48 IU/L (14-36)
[2022-03-12 21:43] LABS: Add Manual Diff / Slide Review SLIDE REVIEW
[2022-03-12 21:46] LABS: COVID19 -Nasal RAPID POSITIVE (Negative)
[2022-03-12 21:48] LABS: Procalcitonin 0.09 ng/mL (<0.5)
--- NOTE | 2022-03-12 22:15 | ED.URI ---
HPI - URI/Sore Throat General Chief Complaint: Upper Respiratory Symptoms Stated Complaint: Coughing, Hot and cold one week Time Seen by Provider: 03/12/22 20:52 Source: patient Mode of arrival: Ambulatory History of Present Illness HPI Narrative: 76F nonsmoker with extensive medical history including coronary artery disease status post three-vessel bypass, hypertension, hyperlipidemia, diabetes presents with upwards of 7 days of increasing fatigue, fever, chills, dry hacking cough. She is not dizzy but is weak and lightheaded. She denies any chest pain but is short of breath with any, even minimal exertion. She denies any orthopnea. She has had no nausea, vomiting or diarrhea. She denies exposure to any persons with known or suspected COVID. She states she did have her COVID vaccinations. She denies recent travel, history of blood clot or known cancer. She has had poor oral intake and decreased appetite. She does meet sepsis criteria and on arrival appropriate order sets are employed Related Data Home Medications Medication Instructions Recorded Confirmed CALCIUM/CHOLECALCIFEROL (CALCIUM 1 ctb PO Q DAY #0 11/25/11 12/29/20 WITH D3 500MG/400UNITS) VITAMIN D (Vitamin D3) 1,000 unit PO QDAY #0 11/25/11 12/29/20 aspirin 81 mg tablet,delayed 81 mg PO QDAY #0 11/25/11 12/29/20 release INSULIN LISPRO (#HUMALOG (SHORT See Rx Instructions .ROUTE 05/18/12 12/29/20 ACTING)) .COMPLEX #0 METFORMIN HCL (GLUCOPHAGE) 500 mg PO TID #0 05/18/12 12/29/20 Loratadine 10 mg PO Q DAY #0 05/23/13 12/29/20 naproxen sodium 220 mg tablet 220 mg PO Q DAY #0 05/23/13 12/29/20 (Aleve) omeprazole magnesium 20 mg 20 mg PO #0 03/20/17 12/29/20 tablet,delayed release (Prilosec OTC) metoprolol tartrate 25 mg tablet 25 mg PO BID #0 tab 02/13/18 12/29/20 pravastatin 20 mg tablet 10 mg PO HS #0 tab 09/25/18 12/29/20 (Pravachol) dulaglutide 0.75 mg/0.5 mL 0.75 mg SUBCUT QWEEK 10/08/19 12/29/20 subcutaneous pen injector (Trulicity) Allergies Allergy/AdvReac Type Severity Reaction Status Date / Time adhesive [ADHESIVE] Allergy Mild RASH Verified 12/29/20 15:56 gabapentin [GABAPENTIN] Allergy Mild Verified 12/29/20 15:56 propoxyphene Allergy Mild Verified 12/29/20 15:56 tramadol [TRAMADOL] Allergy Mild Verified 12/29/20 15:56 hydrocodone [HYDROCODONE] AdvReac Unknown VOMITING Verified 12/29/20 15:56 oxycodone [OXYCODONE] AdvReac Unknown LIGHT Verified 12/29/20 15:56 HEADED Review of Systems Review of Systems Narrative: GENERAL: See HPI HEENT: Denies sinus pain, ear pain, sore throat, difficulty swallowing, dizziness. RESPIRATORY: See HPI CARDIOVASCULAR: See HPI GASTROINTESTINAL: Denies nausea, vomiting, abdominal pain, diarrhea, constipation, melena. : Denies dysuria, frequency, incontinence, hematuria, urinary retention. MUSCULOSKELETAL: denies weakness, joint pain, or bony pain SKIN: Denies rash, skin lesions, or other NEUROLOGIC: Denies weakness, headache, numbness, change in speech, confusion, seizures, incoordination. PSYCHIATRIC: No concerning psychosocial issues. 12 point review of systems is negative except for those stated above Patient History Medical History (Updated 03/13/22 @ 04:46 by Jc Donovan DO) Anemia Ankle pain Asthma Back pain Cardiovascular disease (with mention of arteriosclerosis) Chronic cough Coronary artery disease involving coronary bypass graft Diabetes 1.5, managed as type 2 Foot pain GERD (gastroesophageal reflux disease) Gout H/O diverticulitis of colon H/O headache Hemorrhoids HPV test positive Human papilloma virus Hx of abnormal cervical Pap smear Hypertension Osteoarthritis Overweight Positive PPD Postmenopausal Recurrent sinusitis Restless leg syndrome Shoulder pain Thalassemia Surgical History Anesthesia H/O colonoscopy H/O LEEP (~2012) History of open heart surgery S/P triple vessel bypass Status post breast biopsy Family History Brother Diabetes mellitus Hypertension Brother Diabetes mellitus Hypertension Mother Diabetes mellitus Heart disease Hypertension Social History household members: spouse Smoking Status: Never smoker alcohol intake: never Smoking Status: Never smoker alcohol intake frequency: 0-2 drinks per day Substance Use Type: does not use Exam Narrative Exam Narrative: GENERAL: [76] year old patient appears stated age. Well-developed patient, in mild distress. Minimal exertion does create visible shortness of breath increased work of breathing though no measurable hypoxemia as noted HEAD: Atraumatic. Normocephalic. EYES: Pupils equal round and reactive. Extraocular motions intact. No scleral icterus. No injection or drainage. ENT: Nose without bleeding, purulent drainage. Throat without erythema, tonsillar hypertrophy or exudate. Airway patent. NECK: Trachea midline. Non tender CARDIOVASCULAR: Regular rate and rhythm without murmurs, gallops, or rubs. RESPIRATORY: Clear to auscultation. Increased work of breathing with minimal exertion, accessory muscle use and tachypnea though no measured hypoxemia is noted GASTROINTESTINAL: Abdomen soft, non-tender, nondistended. EXTREMITIES: No edema or joint tenderness. BACK: Nontender without deformity or crepitance. No flank tenderness. NEURO: AOx3. SKIN: No rash or erythema of visible areas Initial Vital Signs Initial Vital Signs: Vital Signs Temperature 100.3 F H 03/12/22 20:41 Pulse Rate 106 H 03/12/22 20:41 Respiratory Rate 20 03/12/22 20:41 Blood Pressure 184/80 H 03/12/22 20:41 Pulse Oximetry 97 03/12/22 20:41 Course Orders Ordered: ED Orders 03/12/22 20:48 XR chest 1V Stat Blood Culture Stat EKG-12 Lead Stat RT Consult Eval and Treat NOW 03/12/22 21:00 Complete Blood Count AUTO DIFF Stat Comprehensive Metabolic Panel Stat Lactate (Lactic Acid) Stat Lipase Stat Procalcitonin Stat Urine Culture Stat Urine Microscopic Stat 03/12/22 21:26 COVID19 -Nasal RAPID/Pre-Proc Stat Acetaminophen (Acetaminophen 325 Mg Tablet) 650 mg PO Q6HR PRN PRN Reason: pain/fever Last Admin: 03/13/22 01:03 Dose: 650 mg Documented by: CTR.JOSE MIGUELPREA Aspirin (Aspirin Ec 81 Mg Tablet) 81 mg PO DAILY CHERYL Last Admin: 03/13/22 02:00 Dose: 81 mg Documented by: CTR.[email or web address] Benzocaine (Benzocaine/Menthol 1 Arthur Pkt) 1 each PO Q1HR PRN PRN Reason: Sore Throat Last Admin: 03/13/22 04:21 Dose: 1 each Documented by: Admin: 03/13/22 01:05 Dose: 1 each Documented by: CAROLYNE Dextrose (Dextrose 50 % In Water 25 Gm/50 Ml Syringe) 25 gm IV PRN PRN PRN Reason: Hypoglycemia Enoxaparin Sodium (Enoxaparin 40 Mg/0.4 Ml Syringe) 40 mg SUBCUT DAILY CHERYL Guaifenesin (Guaifenesin Solution 100 Mg/5 Ml Udc) 200 mg PO Q4HR PRN PRN Reason: Cough Last Admin: 03/13/22 01:03 Dose: 200 mg Documented by: CAROLYNE Insulin Human Lispro (Insulin Lispro 100 Unit/Ml 3ml Vial) 0 unit SUBCUT ACHS CHERYL; Protocol Naloxone HCl (Naloxone 0.4 Mg/Ml Vial) 0.2 mg IV Q2MIN PRN PRN Reason: Opiate Reversal Ondansetron HCl (Ondansetron 4 Mg/2 Ml Inj) 4 mg IV Q8HR PRN PRN Reason: Nausea And Vomiting Discontinued Medications Sodium Chloride (Normal Saline 0.9%) 1,000 mls @ 1,000 mls/hr IV BOLUS ONE Stop: 03/12/22 21:47 Last Infusion: 03/12/22 23:02 Dose: 0 mls/hr Documented by: Admin: 03/12/22 21:29 Dose: 1,000 mls/hr Documented by: MERVIN Sodium Chloride (Normal Saline 0.9%) 2,163.63 mls @ 721.21 mls/hr 30 ml/kg infuse over 3 hr (2163.63 ml) IV NOW ONE Stop: 03/13/22 01:14 Last Admin: 03/13/22 00:53 Dose: Not Given Documented by: CAROLYNE Ceftriaxone Sodium 2,000 mg/ (Sodium Chloride) 100 mls @ 200 mls/hr IV NOW ONE Stop: 03/12/22 22:16 Last Infusion: 03/12/22 23:02 Dose: 0 mls/hr Documented by: Admin: 03/12/22 22:28 Dose: 200 mls/hr Documented by: MERVIN Vital Signs Vital signs: Vital Signs - 8 hr 03/12/22 20:41 03/12/22 21:21 03/12/22 21:30 Temperature 100.3 F H Pulse Rate 106 H 101 H 98 H Respiratory Rate 20 28 H 22 Blood Pressure 184/80 H 110/57 L Pulse Oximetry 97 95 95 03/12/22 22:00 03/12/22 22:01 03/12/22 22:30 Temperature Pulse Rate 101 H 102 H 104 H Respiratory Rate 25 H 27 H 36 H Blood Pressure 139/63 Pulse Oximetry 96 95 96 MDM - URI/Sore Throat Lab Data Result diagrams: 03/12/22 21:00 03/12/22 21:00 Labs: Lab Results 03/12/22 03/12/22 03/12/22 Range/Units 21:00 21:00 21:00 WBC 9.8 (4.5-11.0) X10^3/uL RBC 4.50 (4.0-5.2) X10^6/uL Hgb 9.8 L (12.0-16.0) g/dL Hct 30.7 L (36-46) % MCV 68.3 L (80-100) fL MCH 21.7 L (26-34) PG MCHC 31.7 (30-36) % RDW 17.3 H (11.6-14.8) % Plt Count 317 (150-400) X10^3/uL Neut % (Auto) 80.7 H (50-75) % Lymph % (Auto) 8.4 L (25-40) % [place] % (Auto) 8.3 (3-14) % Eos % (Auto) 2.3 (2-4) % Baso % (Auto) 0.3 (0-2) % Neut # (Auto) 7900 H (7541-3307) /uL Lymph # (Auto) 800 L (3417-5932) /uL [place] # (Auto) 800 (0-900) /uL Eos # (Auto) 200 (0-450) /uL Baso # (Auto) 0 (0-100) /uL RBC Morphology See below Anisocytosis 2+ H Microcytosis 1+ H Sodium 135 L (137-145) mmol/L Potassium 5.8 H (3.4-5.1) mmol/L Chloride 102 (98-107) mmol/L Carbon Dioxide 21 L (22-32) mmol/L BUN 26 H (7-17) mg/dL Creatinine 1.16 H (0.52-1.04) mg/dL Estimated GFR 49 L (>60) mL/min BUN/Creatinine Ratio 22.4 H (6-22) Glucose 198 H (80-110) mg/dL Hemoglobin A1c (4.0-6.0) % Lactate 2.8 H (0.7-2.1) mmol/L Calcium 9.0 (8.4-10.2) mg/dL Total Bilirubin 0.4 (0.2-1.3) mg/dL AST 48 H (14-36) IU/L ALT 27 (<35) IU/L Alkaline Phosphatase 100 (38-126) U/L Total Protein 8.6 H (6.3-8.2) g/dL Albumin 4.5 (3.5-5.0) g/dL Globulin 4.1 (1.7-4.1) g/dL Albumin/Globulin Ratio 1.1 (1.0-2.8) Lipase 94 (23-300) U/L Procalcitonin 0.09 (<0.5) ng/mL Urine RBC (0-5/HPF) Urine WBC (0-5/HPF) Ur Squamous Epith Cells (0-5/HPF) Urine Bacteria (None) Ur Culture Indicated? SARS-CoV-2 (PCR) (Negative) 03/12/22 03/12/22 03/12/22 Range/Units 21:00 21:00 21:26 WBC (4.5-11.0) X10^3/uL RBC (4.0-5.2) X10^6/uL Hgb (12.0-16.0) g/dL Hct (36-46) % MCV (80-100) fL MCH (26-34) PG MCHC (30-36) % RDW (11.6-14.8) % Plt Count (150-400) X10^3/uL Neut % (Auto) (50-75) % Lymph % (Auto) (25-40) % [place] % (Auto) (3-14) % Eos % (Auto) (2-4) % Baso % (Auto) (0-2) % Neut # (Auto) (4476-6149) /uL Lymph # (Auto) (3350-9812) /uL [place] # (Auto) (0-900) /uL Eos # (Auto) (0-450) /uL Baso # (Auto) (0-100) /uL RBC Morphology Anisocytosis Microcytosis Sodium (137-145) mmol/L Potassium (3.4-5.1) mmol/L Chloride (98-107) mmol/L Carbon Dioxide (22-32) mmol/L BUN (7-17) mg/dL Creatinine (0.52-1.04) mg/dL Estimated GFR (>60) mL/min BUN/Creatinine Ratio (6-22) Glucose (80-110) mg/dL Hemoglobin A1c 7.8 H (4.0-6.0) % Lactate (0.7-2.1) mmol/L Calcium (8.4-10.2) mg/dL Total Bilirubin (0.2-1.3) mg/dL AST (14-36) IU/L ALT (<35) IU/L Alkaline Phosphatase (38-126) U/L Total Protein (6.3-8.2) g/dL Albumin (3.5-5.0) g/dL Globulin (1.7-4.1) g/dL Albumin/Globulin Ratio (1.0-2.8) Lipase (23-300) U/L Procalcitonin (<0.5) ng/mL Urine RBC None seen (0-5/HPF) Urine WBC 0-1/hpf (0-5/HPF) Ur Squamous Epith Cells 0-1 /hpf (0-5/HPF) Urine Bacteria None seen (None) Ur Culture Indicated? Specimen cultured SARS-CoV-2 (PCR) Positive H (Negative) Point of Care Testing Test Results Not applicable Urine Dip Bedside Urine Glucose Negative Bedside Urine Bilirubin - Negative Bedside Urine Ketone - Negative Urine Specific [place] 1.015 Bedside Urine Occult Blood - Negative Bedside Urine pH 6.0 Bedside Urine Protein +/- 15 Bedside Urine Urobilinogen - Negative Bedside Urine Nitrite - Negative Bedside Urine Leukocytes - Negative Esterase Imaging Data Chest x-ray: Radiologist's Impression: Kathy Lemon R??76??F??1945 ? Allergy/Adv: adhesive, gabapentin, propoxyphene, tramadol, hydrocodone, oxycodone (More??) Close Chest X-Ray (Signed) Hadley Steele - 03/12/[address] (Signed) Mela Smart - 02/02/22 Chest X-Ray (Signed) Mela Smart - 02/02/22 Hand X-Ray (Signed) JonesRupertpenelope - 01/03/22 Hand X-Ray (Cancelled) 01/03/22 Chest X-Ray (Signed) Shama Lockhart - 01/03/22 Shoulder X-Ray (Signed) Malik Cadena - 12/18/20 Mammogram Screening (Signed) Obey Bejarano - 12/11/[address] (Signed) David Velasquez - 08/21/[address] (Signed) David Velasquez - 08/21/20 Mammogram Screening (Signed) Kitty Putnam - 10/08/19 Hip X-Ray (Signed) Gabby Bach - 07/04/19 Mammogram Screening (Signed) Julien Ross - 10/01/18 Launch?Image [address] [address] XRay Report Signed Patient: Kathy Lemon MR#: [id number] : 1945 Acct:[id number] Age/Sex: 76 / F Date of Service: 03/12/22 Loc: Accession Number: [id number] ?? Procedure: XR chest 1V Ordering Provider: Jc Donovan D.O. PROCEDURE:? XR CHEST 1V ? INDICATIONS:? suspected sepsis ? TECHNIQUE:? One view of the chest was acquired.? ? COMPARISON:? [facility], CR, XR CHEST 1V, 02/02/2022, 20:50.? [facility], CR, XR CHEST 2V, 01/03/2022, 12:03. ? FINDINGS:? ? Surgical changes and devices:? Sternotomy wires, presumed prior CABG. ? Lungs and pleura:? Lungs are mildly abnormal with a mild chronic interstitial prominence perhaps related to prior smoking history.? No pleural effusions or pneumothorax.? ? Mediastinum:? Mediastinal contours appear normal.? Heart size is normal.? ? Bones and chest wall:? No suspicious bony lesions.? Overlying soft tissues appear unremarkable.? ? IMPRESSION:? Mild chronic interstitial prominence, no definite acute disease.? No pneumonia found.? Prior CABG. ? ? Dictated by: Hadley Steele M.D. on 03/12/2022 at 21:17 ? ? Approved by: Hadley Steele M.D. on 03/12/2022 at 21:18 ? MDM Narrative Medical decision making narrative: Patient with extensive medical history presents with sepsis criteria though underlying infection appears to be related to COVID. Elevated lactate raises the question of potential for bacterial superinfection and fluids and antibiotics are ordered as such. Repeat lactate significantly improved. Patient requires hospitalization for ongoing treatment and stabilization of her condition. Discharge Plan Departure Patient Disposition: Admitted As Inpatient Clinical Impression: Sepsis, COVID-19 Admit Date/Time: 03/12/22 22:47 Admit Provider: Prachi Araujo
[2022-03-12 22:19] LABS: Bacteria Urine None Seen; Culture Indicated Urine Specimen Cultured; RBC Urine None Seen (0-5/HPF); Squamous Epithelial Cell Urine 0-1 /HPF (0-5/HPF); WBC Urine 0-1/HPF (0-5/HPF)
[2022-03-12] MEDS: cefTRIAXone 2,000 MG in SODIUM CHLORIDE 0.9% 100 ML 200 MG IV (22:28)
[2022-03-12 22:50] LABS: Anisocytosis 2+; Microcytosis 1+
[2022-03-12 23:09] LABS: Reflexed Lactate in 2 Hours Y
--- NOTE | 2022-03-12 23:15 | PC.NURSE ---
Addendum entered by Brigitte Fuentes R.N. 03/12/22 23:18: Admitted to [facility] 224 Original Note: 2305 Patient arrived on acute care unit A&O, admitted to RM 2243, Covid droplet isolation precautions in place. At [address] Araujo and informed patient has arrived on unit.
[2022-03-12 23:41] LABS: Lactate 2HR (Lactic Acid Rflx) 1.8 mmol/L (0.7-2.1)
--- NOTE | 2022-03-13 00:42 | P.HP_ITS ---
History of Present Illness History of Present Illness Date Patient Seen: 03/13/22 Time Patient Seen: 00:05 Date of Onset of Symptoms: 03/06/22 Chief complaint: Coughing, Hot and cold one week Narrative: Patient is a 76 year old female with underlying coronary artery disease status post three-vessel CABG remotely, hypertension, insulin-dependent diabetes, gout, and reported childhood asthma who presented to the emergency department with o ne-week history of symptoms. She notes she initially developed a cough but over the last week has had sore throat, nausea, occasional headache, and loose stool. The cough has been nonproductive. She has had increasing difficulty with dyspnea on exertion. However, she has been monitoring her oxygen saturations at home and reports that they have stayed around 93-94%. She has felt wheezy. She states that last night she had difficulty sleeping due to the frequency of her cough. Today, she did not eat as every time she attempted to eat or drink, she reports the cough would increase. She reports that her had been sick with a bit of a cough and sore throat. However he was not tested for COVID as he is a COVID non-believer. Patient reports that she has received Moderna vaccine x2, but has not received any boosters. She reports she was hospitalized 2 months ago at [facility] with an NSTEMI. She underwent a cardiac catheterization but did not require any stenting. She is on Plavix, aspirin, lisinopril, pravastatin, and a beta-nalini since that time. Patient History Medical History (Updated 02/18/22 @ 00:00 by ) Anemia Ankle pain Asthma Back pain Cardiovascular disease (with mention of arteriosclerosis) Chronic cough Coronary artery disease involving coronary bypass graft Diabetes 1.5, managed as type 2 Foot pain GERD (gastroesophageal reflux disease) Gout H/O diverticulitis of colon H/O headache Hemorrhoids HPV test positive Human papilloma virus Hx of abnormal cervical Pap smear Hypertension Osteoarthritis Overweight Positive PPD Postmenopausal Recurrent sinusitis Restless leg syndrome Shoulder pain Thalassemia Surgical History Anesthesia H/O colonoscopy H/O LEEP (~2012) History of open heart surgery S/P triple vessel bypass Status post breast biopsy Family & Social History Family History Brother Diabetes mellitus Hypertension Brother Diabetes mellitus Hypertension Mother Diabetes mellitus Heart disease Hypertension Social History: household members spouse Prior Living Arrangements House Safety & Behavioral: Feels Safe in Current Yes Environment Been Physically Hurt or No Threatened By a Person Tobacco & Substance use: Smoking Status Never smoker alcohol intake occasional alcohol intake frequency Substance Use Type does not use Meds Home Medications and Allergies Home Medications Medication Instructions Recorded Confirmed Type CALCIUM/CHOLECALCIFEROL (CALCIUM 1 ctb PO Q DAY #0 11/25/11 12/29/20 History WITH D3 500MG/400UNITS) VITAMIN D (Vitamin D3) 1,000 unit PO QDAY #0 11/25/11 12/29/20 History aspirin 81 mg tablet,delayed 81 mg PO QDAY #0 11/25/11 12/29/20 History release INSULIN LISPRO (#HUMALOG (SHORT See Rx Instructions .ROUTE 05/18/12 12/29/20 History ACTING)) .COMPLEX #0 METFORMIN HCL (GLUCOPHAGE) 500 mg PO TID #0 05/18/12 12/29/20 History Loratadine 10 mg PO Q DAY #0 05/23/13 12/29/20 History naproxen sodium 220 mg tablet 220 mg PO Q DAY #0 05/23/13 12/29/20 History (Aleve) omeprazole magnesium 20 mg 20 mg PO #0 03/20/17 12/29/20 History tablet,delayed release (Prilosec OTC) metoprolol tartrate 25 mg tablet 25 mg PO BID #0 tab 02/13/18 12/29/20 History pravastatin 20 mg tablet 10 mg PO HS #0 tab 09/25/18 12/29/20 History (Pravachol) dulaglutide 0.75 mg/0.5 mL 0.75 mg SUBCUT QWEEK 10/08/19 12/29/20 History subcutaneous pen injector (Trulicity) Allergies Allergy/AdvReac Type Severity Reaction Status Date / Time adhesive [ADHESIVE] Allergy Mild RASH Verified 12/29/20 15:56 gabapentin [GABAPENTIN] Allergy Mild Verified 12/29/20 15:56 propoxyphene Allergy Mild Verified 12/29/20 15:56 tramadol [TRAMADOL] Allergy Mild Verified 12/29/20 15:56 hydrocodone [HYDROCODONE] AdvReac Unknown VOMITING Verified 12/29/20 15:56 oxycodone [OXYCODONE] AdvReac Unknown LIGHT Verified 12/29/20 15:56 HEADED Review of Systems Review of Systems Narrative: All other systems were reviewed negative Exam Vital Signs (past 8 hours): - 03/12/22 20:41 03/12/22 21:21 03/12/22 21:30 Temperature 100.3 F H Pulse Rate 106 H 101 H 98 H Respiratory Rate 20 28 H 22 Blood Pressure 184/80 H 110/57 L Pulse Oximetry 97 95 95 03/12/22 22:00 03/12/22 22:01 03/12/22 22:30 Temperature Pulse Rate 101 H 102 H 104 H Respiratory Rate 25 H 27 H 36 H Blood Pressure 139/63 Pulse Oximetry 96 95 96 03/12/22 23:51 Temperature 99.6 F Pulse Rate 103 H Respiratory Rate 28 H Blood Pressure 154/58 H Pulse Oximetry 97 Oxygen Delivery Method Room Air Narrative Exam Narrative: GEN: Very pleasant middle-aged female, Alert and oriented x3, frequent cough HEENT: Normocephalic, face symmetric, pupils equal round reactive to light, extraocular movements intact, sclerae anicteric, conjunctiva clear, nares patent, oropharynx reveals an intact soft and hard palate with moist mucous membranes, dentition is fair NECK: Supple, no lymphadenopathy, thyroid without enlargement or nodularity, carotids no bruits CHEST: Respiratory excursions symmetric, diffusely diminished throughout but clear to auscultation bilaterally, no wheezes or rhonchi CV: Regular rate and rhythm, no murmurs, rubs, gallops, PMI nondisplaced ABD: Soft, nontender, nondistended, bowel sounds present in all 4 quadrants, no organomegaly or masses appreciated EXTR: Warm, well perfused, no clubbing/cyanosis/edema SKIN: Warm and dry, without rash NEURO: Alert and oriented x3, cranial nerves 2 through 12 are intact and symmetric bilaterally, motor strength 5/5 throughout, sensation intact throughout PSYCH: Mood and affect is within normal limits, judgment and insight are appropriate Objective Labs Result Diagrams: 03/12/22 21:00 03/12/22 21:00 Labs: Laboratory Results - last 24 hr 03/12/22 03/12/22 03/12/22 21:00 21:00 21:00 WBC 9.8 RBC 4.50 Hgb 9.8 L Hct 30.7 L MCV 68.3 L MCH 21.7 L MCHC 31.7 RDW 17.3 H Plt Count 317 Neut % (Auto) 80.7 H Lymph % (Auto) 8.4 L [place] % (Auto) 8.3 Eos % (Auto) 2.3 Baso % (Auto) 0.3 Neut # (Auto) 7900 H Lymph # (Auto) 800 L [place] # (Auto) 800 Eos # (Auto) 200 Baso # (Auto) 0 RBC Morphology See below Anisocytosis 2+ H Microcytosis 1+ H Sodium 135 L Potassium 5.8 H Chloride 102 Carbon Dioxide 21 L BUN 26 H Creatinine 1.16 H Estimated GFR 49 L BUN/Creatinine Ratio 22.4 H Glucose 198 H Lactate 2.8 H Calcium 9.0 Total Bilirubin 0.4 AST 48 H ALT 27 Alkaline Phosphatase 100 Total Protein 8.6 H Albumin 4.5 Globulin 4.1 Albumin/Globulin Ratio 1.1 Lipase 94 Procalcitonin 0.09 Urine RBC Urine WBC Ur Squamous Epith Cells Urine Bacteria Ur Culture Indicated? SARS-CoV-2 (PCR) 03/12/22 03/12/22 03/12/22 21:00 21:26 23:20 WBC RBC Hgb Hct MCV MCH MCHC RDW Plt Count Neut % (Auto) Lymph % (Auto) [place] % (Auto) Eos % (Auto) Baso % (Auto) Neut # (Auto) Lymph # (Auto) [place] # (Auto) Eos # (Auto) Baso # (Auto) RBC Morphology Anisocytosis Microcytosis Sodium Potassium Cancelled Chloride Carbon Dioxide BUN Creatinine Estimated GFR BUN/Creatinine Ratio Glucose Lactate Calcium Total Bilirubin AST ALT Alkaline Phosphatase Total Protein Albumin Globulin Albumin/Globulin Ratio Lipase Procalcitonin Urine RBC None seen Urine WBC 0-1/hpf Ur Squamous Epith Cells 0-1 /hpf Urine Bacteria None seen Ur Culture Indicated? Specimen cultured SARS-CoV-2 (PCR) Positive H 03/12/22 23:20 WBC RBC Hgb Hct MCV MCH MCHC RDW Plt Count Neut % (Auto) Lymph % (Auto) [place] % (Auto) Eos % (Auto) Baso % (Auto) Neut # (Auto) Lymph # (Auto) [place] # (Auto) Eos # (Auto) Baso # (Auto) RBC Morphology Anisocytosis Microcytosis Sodium Potassium Chloride Carbon Dioxide BUN Creatinine Estimated GFR BUN/Creatinine Ratio Glucose Lactate 1.8 Calcium Total Bilirubin AST ALT Alkaline Phosphatase Total Protein Albumin Globulin Albumin/Globulin Ratio Lipase Procalcitonin Urine RBC Urine WBC Ur Squamous Epith Cells Urine Bacteria Ur Culture Indicated? SARS-CoV-2 (PCR) Assessment & Plan Assessment & Plan narrative: 1. COVID pneumonitis versus pneumonia Patient presents with one-week history of cough, shortness of breath, sore throat, diarrhea. COVID-19 testing was positive. She was vaccinated x2 with Moderna but had not received boosters. She has not been hypoxic. At this time, she likely does not meet criteria for remdesivir as she is 7 days into her symptoms and is not hypoxic. Additionally, she does not qualify for dexamethasone at this time. Will continue to monitor. Continue respiratory isolation. Cough drops will be available as needed. She has no evidence of reactive airways, no MDIs ordered. 2. SIRS Patient was febrile to 100.3, mildly tachycardic, and tachypneic on admission. Lactate was elevated. Likely etiology is COVID infection. She is now afebrile with normal vital signs. 3. Lactic acidosis Suspect secondary to being hypokalemia. This has resolved with IV fluids in the emergency department. IV fluids have been discontinued. 4. Hyperkalemia Patient has had 2 lab draws in the emergency department. First potassium level came back at 5.8. Repeat was more hemolyzed. As we cannot obtain an accurate potassium level, her lisinopril has been held. 5. JACLYN Creatinine is 1.16 today, BUN is also elevated. Baseline creatinine appears to be around 1.02. Will recheck in the morning. She did receive 30 cc/kilogram of IV fluids in the emergency department. 6. Insulin-dependent diabetes mellitus type 2 Patient typically takes Lantus as well as sliding scale. She will be placed on a controlled carb diet. Blood sugar in the emergency department was 198. Will resume her usual home medications once meds have been reconciled 7. Coronary artery disease Patient reports previous bypass surgery and recent NSTEMI in January of this year. Negative catheterization at that time. Continue usual goal-directed therapy. 8. Hypertension Blood pressure was moderately elevated in the emergency department at 154/58. Await medication reconciliation. Plan to restart her her metoprolol. Holding lisinopril as noted above secondary to unclear potassium level. 9. Mild transaminitis Likely COVID induced. As it is mild, I have no plans to repeat it in the morning. 10. Hyponatremia Mild. Likely secondary to poor oral intake. Anticipate this will improve with IV fluids given in the emergency department. 11. Gout Patient reports daily allopurinol use. Await medication reconciliation. Code status Limited, patient would not want intubation Prophylaxis Start Lovenox secondary to COVID pneumonia Disposition Admit to acute care Primary care provider Dr. Marquez COVID-19 Result date/Date tested (Pos, Neg/Pending): 03/12/22 Time Spent With Patient Critical Care time: I spent a total of [] minutes of critical care time on this patient's care today; this time is exclusive of procedural time. Quality VTE Deep Vein Thrombosis/Pulmonary Embolism Present on Admission: No
[2022-03-13 00:52] VITALS: O2SAT 97
[2022-03-13 01:03] VITALS: TEMP 37.6
[2022-03-13] MEDS: guaiFENesin Solution 100 MG/5 ML UDC 200 MG PO (01:03)
[2022-03-13] MEDS: ACETAMINOPHEN 325 MG TABLET 650 MG PO (01:03)
[2022-03-13] MEDS: BENZOCAINE/MENTHOL 1 LOZ PKT 1 EACH PO ×2 (01:05→04:21)
[2022-03-13] MEDS: ASPIRIN EC 81 MG TABLET PO ×2 (02:00→09:00)
[2022-03-13 03:18] LABS: Hemoglobin A1C% w Est Avg Glu 7.8 % (4.0-6.0)
[2022-03-13 06:23] LABS: Basophils Absolute Auto 100 /uL (0-100); Eosinophils Absolute Auto 100 /uL (0-450); Hemoglobin 10.5 g/dL (12.0-16.0); Lymphocytes Absolute Auto 1200 /uL (1100-4500); Lymphocytes Percent Auto 14.2 % (25-40); Mean Corpuscular Hemoglobin 21.7 PG (26-34); Mean Corpuscular Volume 67.9 fL (80-100); Monocytes Absolute Auto 1000 /uL (0-900); Neutrophils Absolute Auto 5900 /uL (1500-7000); Neutrophils Percent Auto 71.8 % (50-75); Platelet Count 312 X10^3/uL (150-400); Red Blood Cell Count 4.86 X10^6/uL (4.0-5.2); Red Cell Distribution Width 17.2 % (11.6-14.8); White Blood Cell Count 8.2 X10^3/uL (4.5-11.0)
[2022-03-13 06:29] LABS: Add Manual Diff / Slide Review SLIDE REVIEW; BUN Creatinine Ratio 16.2 (6-22); Blood Urea Nitrogen 18 mg/dL (7-17); Calcium 9.2 mg/dL (8.4-10.2); Carbon Dioxide 26 mmol/L (22-32); Chloride 102 mmol/L (98-107); Estimated Glomerular Filt Rate 52 mL/min (>60); Glucose 187 mg/dL (80-110); HEMOLYSIS < 15 (0-50); Potassium 4.6 mmol/L (3.4-5.1); Sodium 139 mmol/L (137-145)
[2022-03-13 07:51] VITALS: BP 125/77; PULSE 78; RESP 17; TEMP 36.4; O2SAT 97
--- NOTE | 2022-03-13 07:54 | PC.NURSE ---
End of shift report. Patient admitted last night from the ED. AAOX4. Up indept. in room. O2 Sats 94% on RA. Has a frequent dry non-productive cough. In droplet isolation, COVID positive.
[2022-03-13 08:00] VITALS: O2SAT 97
[2022-03-13 08:19] LABS: Microcytosis 1+
--- NOTE | 2022-03-13 09:54 | PC.NURSE ---
Pt is dressed and ready for discharge home with Spouse. IV has been removed. Went over d/c instructions with Pt-discussed d/c meds, time of last dose, reviewed stroke education, discussed drinking plenty of fluids to prevent constipation or dehydration. Discussed isolating to prevent spread of COVID and perhaps having her tested. Discussed with Pt the potential for blood sugar increase with the cough medicine. Pt already has an appointment with Dr. Sanchez set up. Pt denies further questions and is ready to be taken out to POV by [employer] via w/c with Spouse and all belongings.
--- NOTE | 2022-03-13 11:44 | CM.DANOTE ---
DCP: Case received, EMR reviewed. Was unable to see patient secondary to having COVID. Called patient's room. Introduced self and role. Was able to obtain information regarding patient's baseline activity level at home prior to hospitalization. DCP assessment completed with information currently available. Patient is a 76 year old female who admitted yesterday evening to the care of the hospitalist team. PCP: Dr. Marquez. Payer: confirmed: Medicare/[employer]. Patient came to the hospital via private vehicle secondary tohaving 7 days of increasing fatigue, ever, chills, and cough. Patient had also been noting, increased weaknes. Patient has history of CAD, post three-vessel bypass, HTN. Patient was diagnosed with COVID. According to notes, patient was double vaccinated, spouse, Was not tested, as is a COVID non-believer. Patient was also hospitalized about 2 months ago at [facility] with NSTEMI. Called patient's room, since she is COVID positive. Confirmed that she resides in [place] with her spouse, Lauri. Patient indicated that she is independent at her baseline, and drives. Asked her how she was feeliing, and she indicated, just tired. P: Patient is to be discharging home today. Lana Guerrero RN/Billet Bed Operator. Discharge Planning/Care Management CM Discharge Assessment Start: 03/13/22 11:39 Freq: Status: Discharge Protocol: Document 03/13/22 11:41 (Rec: 03/13/22 11:43 [id number]) Discharge Planning Assessment Assigned Care Management Associate Lana Guerrero RN/Billet Bed Operator Advance Directives? No Advance Directives on File No History Provided By Patient,Medical Record Prior Living Arrangements House Household Members spouse Type of transporation used prior to Drives own vehicle admit Independent with ADL's Yes Is patient alert and oriented? Yes Caregiver for Another No DME Already Rented / Owned Cane Barriers to Discharge No Discharge Plan Home Transportation Arrangement Spouse Whiteboard Updated in Patient Room with Yes name and ext. # of Care Management Associate Review Status In Process Next Review Type Continued Stay Review
--- NOTE | 2022-03-13 17:07 | P.DS_ITS ---
History of Present Illness History of Present Illness Chief complaint: Coughing, Hot and cold one week Narrative: 76 year old female with underlying coronary artery disease status post three- vessel CABG remotely, hypertension, insulin-dependent diabetes, gout, and reported childhood asthma who presented to the emergency department with one- week history of symptoms.? She notes she initially developed a cough but over the last week has had sore throat, nausea, occasional headache, and loose stool.? The cough has been nonproductive. She has had increasing difficulty with dyspnea on exertion.? However, she has been monitoring her oxygen saturations at home and reports that they have stayed around 93-94%.? She has felt wheezy.? She states that last night she had difficulty sleeping due to the frequency of her cough.? Today, she did not eat as every time she attempted to eat or drink, she reports the cough would increase. She reports that her had been sick with a bit of a cough and sore throat.? However he was not tested for COVID as he is a COVID non-believer.? Patient reports that she has received Moderna vaccine x2, but has not received any boosters.? She reports she was hospitalized 2 months ago at [facility] with an NSTEMI.? She underwent a cardiac catheterization but did not require any stenting.? She is on Plavix, aspirin, lisinopril, pravastatin, and a beta-nalini since that time. Discharge Providers Provider Date of admission: 03/12/22 22:47 Discharge Date: 03/13/22 Primary care physician: Gerson Marquez MD Discharge provider: Leandro Prasad MD Summary Hospital Course Discharge Diagnosis: 1. Acute COVID-19 pneumonia 2. Systemic inflammatory response syndrome 3. Lactic acidosis 4. Acute hyperkalemia 5. Insulin-dependent type 2 diabetes 6. Coronary artery disease 7. Mild transaminitis Hospital Course: Patient was treated overnight with supportive therapy. Oxygen saturations have remained above 95% on room air. Vitals are stable. Lactic acidosis has resolved with volume resuscitation. She did have slight increase in creatinine from baseline but not meeting JACLYN criteria. Renal function was stable on repeat labs. She is at low risk for clinical deterioration and therefore able to discharge home. She is prescribed codeine cough syrup as needed. Status at Discharge Cognitive/behavioral status at discharge: oriented Functional status at discharge: independent ambulation Overall status at discharge: patient is progressing back to baseline Time Spent with Patient Time spent: Less than 30 minutes Exam Vital Signs (past 8 hours): Oxygen Delivery Method Room Air Oxygen Flow Rate 0 Narrative Exam Narrative: General: Alert female with a cough Lungs: Clear to auscultation Neurological: Normal speech and affect, fully oriented, no problems getting up from chair Objective Labs Result Diagrams: 03/13/22 06:10 03/13/22 06:10 Labs: Laboratory Results - last 24 hr 03/12/22 03/12/22 03/12/22 21:00 21:00 21:00 WBC 9.8 RBC 4.50 Hgb 9.8 L Hct 30.7 L MCV 68.3 L MCH 21.7 L MCHC 31.7 RDW 17.3 H Plt Count 317 Neut % (Auto) 80.7 H Lymph % (Auto) 8.4 L [place] % (Auto) 8.3 Eos % (Auto) 2.3 Baso % (Auto) 0.3 Neut # (Auto) 7900 H Lymph # (Auto) 800 L [place] # (Auto) 800 Eos # (Auto) 200 Baso # (Auto) 0 RBC Morphology See below Anisocytosis 2+ H Microcytosis 1+ H Sodium 135 L Potassium 5.8 H Chloride 102 Carbon Dioxide 21 L BUN 26 H Creatinine 1.16 H Estimated GFR 49 L BUN/Creatinine Ratio 22.4 H Glucose 198 H Hemoglobin A1c Lactate 2.8 H Calcium 9.0 Total Bilirubin 0.4 AST 48 H ALT 27 Alkaline Phosphatase 100 Total Protein 8.6 H Albumin 4.5 Globulin 4.1 Albumin/Globulin Ratio 1.1 Lipase 94 Procalcitonin 0.09 Urine RBC Urine WBC Ur Squamous Epith Cells Urine Bacteria Ur Culture Indicated? SARS-CoV-2 (PCR) 03/12/22 03/12/22 03/12/22 21:00 21:00 21:26 WBC RBC Hgb Hct MCV MCH MCHC RDW Plt Count Neut % (Auto) Lymph % (Auto) [place] % (Auto) Eos % (Auto) Baso % (Auto) Neut # (Auto) Lymph # (Auto) [place] # (Auto) Eos # (Auto) Baso # (Auto) RBC Morphology Anisocytosis Microcytosis Sodium Potassium Chloride Carbon Dioxide BUN Creatinine Estimated GFR BUN/Creatinine Ratio Glucose Hemoglobin A1c 7.8 H Lactate Calcium Total Bilirubin AST ALT Alkaline Phosphatase Total Protein Albumin Globulin Albumin/Globulin Ratio Lipase Procalcitonin Urine RBC None seen Urine WBC 0-1/hpf Ur Squamous Epith Cells 0-1 /hpf Urine Bacteria None seen Ur Culture Indicated? Specimen cultured SARS-CoV-2 (PCR) Positive H 03/12/22 03/12/22 03/13/22 23:20 23:20 06:10 WBC 8.2 RBC 4.86 Hgb 10.5 L Hct 33.0 L MCV 67.9 L MCH 21.7 L MCHC 32.0 RDW 17.2 H Plt Count 312 Neut % (Auto) 71.8 Lymph % (Auto) 14.2 L [place] % (Auto) 12.0 Eos % (Auto) 1.0 L Baso % (Auto) 1.0 Neut # (Auto) 5900 Lymph # (Auto) 1200 [place] # (Auto) 1000 H Eos # (Auto) 100 Baso # (Auto) 100 RBC Morphology See below Anisocytosis Microcytosis 1+ H Sodium Potassium Cancelled Chloride Carbon Dioxide BUN Creatinine Estimated GFR BUN/Creatinine Ratio Glucose Hemoglobin A1c Lactate 1.8 Calcium Total Bilirubin AST ALT Alkaline Phosphatase Total Protein Albumin Globulin Albumin/Globulin Ratio Lipase Procalcitonin Urine RBC Urine WBC Ur Squamous Epith Cells Urine Bacteria Ur Culture Indicated? SARS-CoV-2 (PCR) 03/13/22 06:10 WBC RBC Hgb Hct MCV MCH MCHC RDW Plt Count Neut % (Auto) Lymph % (Auto) [place] % (Auto) Eos % (Auto) Baso % (Auto) Neut # (Auto) Lymph # (Auto) [place] # (Auto) Eos # (Auto) Baso # (Auto) RBC Morphology Anisocytosis Microcytosis Sodium 139 Potassium 4.6 D Chloride 102 Carbon Dioxide 26 BUN 18 H Creatinine 1.11 H Estimated GFR 52 L BUN/Creatinine Ratio 16.2 Glucose 187 H Hemoglobin A1c Lactate Calcium 9.2 Total Bilirubin AST ALT Alkaline Phosphatase Total Protein Albumin Globulin Albumin/Globulin Ratio Lipase Procalcitonin Urine RBC Urine WBC Ur Squamous Epith Cells Urine Bacteria Ur Culture Indicated? SARS-CoV-2 (PCR) [facility] Medical History (Updated 03/13/22 @ 04:46 by Jc Donovan DO) Anemia Ankle pain Asthma Back pain Cardiovascular disease (with mention of arteriosclerosis) Chronic cough Coronary artery disease involving coronary bypass graft Diabetes 1.5, managed as type 2 Foot pain GERD (gastroesophageal reflux disease) Gout H/O diverticulitis of colon H/O headache Hemorrhoids HPV test positive Human papilloma virus Hx of abnormal cervical Pap smear Hypertension Osteoarthritis Overweight Positive PPD Postmenopausal Recurrent sinusitis Restless leg syndrome Shoulder pain Thalassemia Surgical History Anesthesia H/O colonoscopy H/O LEEP (~2012) History of open heart surgery S/P triple vessel bypass Status post breast biopsy Family History Brother Diabetes mellitus Hypertension Brother Diabetes mellitus Hypertension Mother Diabetes mellitus Heart disease Hypertension Social History household members: spouse Smoking Status: Never smoker alcohol intake: never Discharge Plan Discharge Plan Patient Disposition: Home Provider Discharge Comment: You received IV fluids to treat inflammatory response and dehydration from COVID infection. Take it easy and drink plenty of fluids to maintain good hydration. You may take codeine cough syrup as needed. Discharge orders & Medications Prescriptions: New codeine-guaifenesin [Guaifenesin AC] 10-100 mg/5 mL liquid 10 ml PO Q4H PRN (Reason: cough) Qty: 237 0RF Continued VITAMIN D (Vitamin D3) 1,000 unit PO QDAY Qty: 0 0RF CALCIUM/CHOLECALCIFEROL (CALCIUM WITH D3 500MG/400UNITS) 1 ctb PO Q DAY Qty: 0 0RF aspirin 81 MG tablet,delayed release (DR/EC) 81 mg PO QDAY Qty: 0 0RF METFORMIN HCL (GLUCOPHAGE) 500 mg PO TID Qty: 0 0RF INSULIN LISPRO (#HUMALOG (SHORT ACTING)) bottle See Rx Instructions .ROUTE .COMPLEX Qty: 0 0RF Label Comments: took 10 units this a.m. for blood sugar > 200's Rx Instructions: sliding scale as indicated Loratadine 10 mg PO Q DAY Qty: 0 0RF naproxen sodium [Aleve] 220 MG tablet 220 mg PO Q DAY Qty: 0 0RF omeprazole magnesium [Prilosec OTC] 20 MG tablet,delayed release (DR/EC) 20 mg PO Qty: 0 0RF metoprolol tartrate 25 mg tablet 25 mg PO BID Qty: 0 0RF pravastatin [Pravachol] 20 mg tablet 10 mg PO HS Qty: 0 0RF Trulicity 0.75 mg/0.5 mL pen injector 0.75 mg SUBCUT QWEEK 0RF Follow up/Referrals: Gerson Marquez MD [Primary Care Provider] - Diet/Activity/Treatments Diet: Carb-consistent/Diabetic Visit Report/Discharge Packet Instructions: DI for COVID-19 (Suspected or Confirmed ), COVID-19: Protecting Yourself When You're at High Risk Discharge Data Primary Care Provider: Gerson Marquez Quality VTE Deep Vein Thrombosis/Pulmonary Embolism Present on Admission: No
== END 2022-03-13 10:44 | disposition home or self-care (01) ==
LOC: ED 22:29 → AC 03-13 00:38
PROVIDERS: Admitting Provider Family Medicine; Emergency Provider Emergency Medicine; PCP Family Medicine; Referring Provider Family Medicine; Visit Provider Family Medicine
DX: U07.1 COVID-19 (principal); J12.82 Pneumonia due to coronavirus disease 2019; R65.10 Systemic inflammatory response syndrome (SIRS) of non-infectious origin without acute organ dysfunction; E87.2 Acidosis; E87.5 Hyperkalemia; R74.01 Elevation of levels of liver transaminase levels; E11.9 Type 2 diabetes mellitus without complications; I25.10 Atherosclerotic heart disease of native coronary artery without angina pectoris; I10 Essential (primary) hypertension; Z95.1 Presence of aortocoronary bypass graft; Z79.4 Long term (current) use of insulin; Z79.01 Long term (current) use of anticoagulants
CPT/HCPCS: 36415; 71045; 80048; 80053; 81003; 81015; 81025; 82962; 83036; 83605; 83690; 84145; 85025; 87040; 87086; 87635; 93005; 93010; 96365; 99285; C9803; G0378; J0696; J1650; J1815

== ENCOUNTER → 2022-08-10 12:14 | Outpatient (CLI) | payer MEDICARE, OTHER, SELFPAY ==
[2022-03-12 23:10] VITALS: BMI 29.0
--- NOTE | 2022-08-10 12:17 | DI.RAD.S_ITS ---
PROCEDURE: XR LUMBAR SPINE 2-3V INDICATIONS: LOW BACK PAIN TECHNIQUE: 3 views of the lumbar spine were acquired. COMPARISON: [facility], CR, L-SPINE 2-3 VIEWS, 07/28/2016, 11:56. [facility], CR, L-SPINE 2-3 VIEWS, 04/01/2014, 12:48. FINDINGS: Bones: 5 [id number] vertebrae are present. There is trace retrolisthesis of L2 on L3. No vertebral body compression fractures. No suspicious bony lesions. There is degenerative disc disease, moderate at L3-L4, mild at L2-L3, L4-L5 and L5-S1. Moderate facet arthropathy at L5-S1, and mild facet arthropathy at L3-L4 and L4-L5. 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 Vascular calcifications consistent with atherosclerosis. IMPRESSION: Degenerative changes in lumbar spine as described. Dictated by: Nubia Bach M.D. on 08/10/2022 at 14:38 Approved by: Nubia Bach M.D. on 08/10/2022 at 14:43
--- NOTE | 2022-08-10 12:17 | DI.RAD.S_ITS ---
PROCEDURE: XR HIP W PEL IF DONE LT 2V INDICATIONS: LOW BACK PAIN TECHNIQUE: AP pelvis with lateral view(s) of the left hip(s). COMPARISON: [facility], PELVIS W UNILATERAL HIP LEFT, 10/08/2012, 14:07. CR, PELVIS W UNILATERAL HIP LEFT, 11/25/2011, 15:13. [facility], CR, HIP 2V RIGHT, 04/01/2014, 12:48. [facility], CR, [id number] W PEL IF PERFORMED, 07/28/2016, 11:57. [facility], CR, XR HIP W PEL IF DONE RT 2V, 07/04/2019, 16:45. FINDINGS: Bones: No fractures or dislocations. Pelvic ring appears intact. No suspicious bony lesions. Mild symmetric hip and sacroiliac joint degeneration bilaterally. Soft tissues: The visualized bowel gas pattern is normal. No suspicious soft tissue calcifications. 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 Dictated by: Nubia Bach M.D. on 08/10/2022 at 14:27 Approved by: Nubia Bach M.D. on 08/10/2022 at 14:28
== END ==
PROVIDERS: PCP Family Medicine; Referring Provider Family Medicine; Visit Provider Family Medicine
DX: M16.0 Bilateral primary osteoarthritis of hip (principal); M46.1 Sacroiliitis, not elsewhere classified; M47.816 Spondylosis without myelopathy or radiculopathy, lumbar region; M47.817 Spondylosis without myelopathy or radiculopathy, lumbosacral region; M54.50 Low back pain, unspecified
CPT/HCPCS: 72100; 73502

== ENCOUNTER 2023-05-07 17:30 | Emergency (ER) | payer MEDICARE, OTHER, SELFPAY ==
[2022-03-12 23:10] VITALS: BMI 29.0
[2023-05-07 17:36] VITALS: BP 168/70; PULSE 99; RESP 17; TEMP 36.8; O2SAT 98; BMI 29.2
--- NOTE | 2023-05-07 17:39 | DI.RAD.S_ITS ---
PROCEDURE: XR KNEE LT 3V INDICATIONS: fell onto knee, pain TECHNIQUE: 3 views of the knee were acquired. COMPARISON: [facility], , KNEE 3V LEFT, 05/19/2017, 12:18. FINDINGS: Bones: No fractures or dislocations. No suspicious bony lesions. Soft tissues: No joint effusion. No suspicious soft tissue calcifications. IMPRESSION: Unremarkable left knee Approved by: Chacorta Garsia M.D. on 05/07/2023 at 17:25
--- NOTE | 2023-05-07 17:48 | ED_ITS ---
HPI - Extremity Injury (Lower) General Chief Complaint: Extremity Injury, Lower Stated Complaint: Knee inj Time Seen by Provider: 05/07/23 17:40 Source: patient Mode of arrival: Ambulatory History of Present Illness HPI Narrative: 78-year-old female nonsmoker with noncontributory medical history presents with her in the chief complaint of a ground level fall earlier this afternoon with resultant left knee injury. She states that she was walking in her garden and her foot got caught up on some of the brakes used in the landscaping and she fell forward, twisting her left knee and her back. She denies direct impact of her knee but now has pain and some swelling. She states that upon standing she felt a clicking and significant pain in her medial knee. She denies hip or ankle pain. She denies any numbness, tingling or weakness. She denies head, neck or back pain. Related Data Home Medications Medication Instructions Recorded Confirmed CALCIUM/CHOLECALCIFEROL (CALCIUM 1 ctb PO Q DAY supplement ##0 11/25/11 12/29/20 WITH D3 500MG/400UNITS) VITAMIN D (Vitamin D3) 1,000 unit PO QDAY ##0 11/25/11 12/29/20 aspirin 81 mg tablet,delayed 81 mg PO QDAY s/p CABG ##0 11/25/11 12/29/20 release INSULIN LISPRO (#HUMALOG (SHORT See Rx Instructions .Route 05/18/12 12/29/20 ACTING)) .COMPLEX diabetes ##0 METFORMIN HCL (GLUCOPHAGE) 500 mg PO TID diabetes ##0 05/18/12 12/29/20 Loratadine 10 mg PO Q DAY allergy ##0 05/23/13 12/29/20 naproxen sodium 220 mg tablet 220 mg PO Q DAY pain ##0 05/23/13 12/29/20 (Aleve) omeprazole magnesium 20 mg 20 mg PO ##0 03/20/17 12/29/20 tablet,delayed release (Prilosec OTC) metoprolol tartrate 25 mg tablet 25 mg PO BID cardic #0 tabs 02/13/18 12/29/20 pravastatin 20 mg tablet 10 mg PO HS #0 tabs 09/25/18 12/29/20 (Pravachol) dulaglutide 0.75 mg/0.5 mL 0.75 mg SUBCUT QWEEK 10/08/19 12/29/20 subcutaneous pen injector (TrProvesica) Previous Rx's Medication Instructions Recorded codeine 10 mg-guaifenesin 100 mg/5 10 ml PO Q4H PRN cough #237 mL 03/13/22 mL oral liquid (Guaifenesin AC) Allergies Allergy/AdvReac Type Severity Reaction Status Date / Time adhesive [ADHESIVE] Allergy Mild RASH Verified 05/07/23 17:36 propoxyphene Allergy Mild Verified 05/07/23 17:36 tramadol [TRAMADOL] Allergy Mild Nausea Verified 05/07/23 17:36 gabapentin [GABAPENTIN] AdvReac Mild Dizziness Verified 05/07/23 17:36 hydrocodone [HYDROCODONE] AdvReac Unknown VOMITING Verified 05/07/23 17:36 oxycodone [OXYCODONE] AdvReac Unknown LIGHT Verified 05/07/23 17:36 HEADED Review of Systems Review of Systems Narrative: GENERAL: Denies chills, fatigue, malaise, fever, sweats. HEENT: Denies sinus pain, ear pain, sore throat, difficulty swallowing, dizziness. RESPIRATORY: Denies dyspnea, cough, wheezing, hemoptysis, sputum. CARDIOVASCULAR: Denies chest pain, palpitations, orthopnea, edema, GASTROINTESTINAL: Denies nausea, vomiting, abdominal pain, diarrhea, constipation, melena. : Denies dysuria, frequency, incontinence, hematuria, urinary retention. MUSCULOSKELETAL: See HPI SKIN: Denies rash, skin lesions, or other NEUROLOGIC: Denies weakness, headache, numbness, change in speech, confusion, seizures, incoordination. PSYCHIATRIC: No concerning psychosocial issues. 12 point review of systems is negative except for those stated above Patient History Medical History (Updated 05/07/23 @ 18:27 by Jc Donovan DO) Anemia Ankle pain Asthma Back pain Cardiovascular disease (with mention of arteriosclerosis) Chronic cough Coronary artery disease involving coronary bypass graft Diabetes 1.5, managed as type 2 Foot pain GERD (gastroesophageal reflux disease) Gout H/O diverticulitis of colon H/O headache Hemorrhoids HPV test positive Human papilloma virus Hx of abnormal cervical Pap smear Hypertension Osteoarthritis Overweight Positive PPD Postmenopausal Recurrent sinusitis Restless leg syndrome Shoulder pain Thalassemia Surgical History Anesthesia H/O colonoscopy H/O LEEP (~2012) History of open heart surgery S/P triple vessel bypass Status post breast biopsy Family History Brother Diabetes mellitus Hypertension Brother Diabetes mellitus Hypertension Mother Diabetes mellitus Heart disease Hypertension Social History household members: spouse Smoking Status: Never smoker alcohol intake: never Smoking Status: Never smoker alcohol intake frequency: 0-2 drinks per day Substance Use Type: does not use Exam Initial Vital Signs Initial Vital Signs: Vital Signs Temperature 98.2 F 05/07/23 17:36 Pulse Rate 99 H 05/07/23 17:36 Respiratory Rate 17 05/07/23 17:36 Blood Pressure 168/70 H 05/07/23 17:36 Pulse Oximetry 98 05/07/23 17:36 Oxygen Delivery Method Room Air 05/07/23 17:36 Procedures Orthopedic Splinting/Casting Injury #1: Side: left Lower Extremity Injury Location: knee Lower Extremity Immobilizer: knee immobilizer Other Orthopedic Equipment: crutches Post splinting neuro exam: intact Post splinting vascular exam: intact Placed by: Nursing Course Orders Ordered: Discontinued Medications Ibuprofen (Ibuprofen 400 Mg Tablet) 500 mg PO NOW ONE Stop: 05/07/23 18:31 Last Admin: 05/07/23 18:34 Dose: Not Given Documented By: THEA Vital Signs Vital signs: Vital Signs - 8 hr 05/07/23 17:36 Temperature 98.2 F Pulse Rate 99 H Respiratory Rate 17 Blood Pressure 168/70 H Pulse Oximetry 98 Oxygen Delivery Method Room Air MDM - Extremity Injury (Lower) MDM Narrative Medical decision making narrative: [78] year old patient presents with left knee pain after twisting fall Multiple etiologies for patient's symptoms considered including, but not limited to: [Sprain versus contusion versus fracture versus dislocation] Prior Charts reviewed in our EMR Primary Historian: patient Labs reviewed and interpreted by myself: Imaging reviewed: No acute fracture or dislocation Patient's history and physical exam are reassuring. The mechanism and exam as well as imaging are most consistent with soft tissue or ligamentous injury, she is splinted, given crutches and encouraged to follow-up. No evidence of fracture or dislocation Findings and discharge diagnosis discussed with patient/family followed by verbalization of understanding Return precautions discussed with patient/family whom verbalize understanding of diagnosis and plan Discharge Plan Departure Patient Disposition: Home Clinical Impression: Left knee sprain Instructions: DI for Knee Sprain Activity Restrictions/Additional Instructions: *You have been diagnosed with [ left knee sprain. As we discussed the Xray has no obvious fracture or dislocation] *What to do: *Please continue to take your regular medications as directed. [ ] New medication prescriptions sent to your pharmacy: [ ] [ ] New medication written as a paper prescription [ ] No new medications given *Please follow up with your primary care provider in 2-3 days, call for an appointment. Let them know you were seen in the Emergency Department and that we ask that you be seen in follow up. We will electronically transmit a record of today's note if your PCP is in our system *If you do not have a primary care provider please contact the [facility] Resource line at [phone]. They will ask some questions about your medical history and help get you set up with a doctor in the community. *Return to Emergency Department if you should have any new, worsening or concerning symptoms, such as [fever greater than 101 F, shaking chills, worsening pain, persistent vomiting or other bothersome symptoms] Prescriptions: No Action VITAMIN D (Vitamin D3) 1,000 unit PO QDAY Qty: 0 CALCIUM/CHOLECALCIFEROL (CALCIUM WITH D3 500MG/400UNITS) 1 ctb PO Q DAY Qty: 0 aspirin 81 MG tablet,delayed release (DR/EC) 81 mg PO QDAY Qty: 0 METFORMIN HCL (GLUCOPHAGE) 500 mg PO TID Qty: 0 INSULIN LISPRO (#HUMALOG (SHORT ACTING)) bottle See Rx Instructions .ROUTE .COMPLEX Qty: 0 Patient Comments: took 10 units this a.m. for blood sugar > 200's Rx Instructions: sliding scale as indicated Loratadine 10 mg PO Q DAY Qty: 0 naproxen sodium [Aleve] 220 MG tablet 220 mg PO Q DAY Qty: 0 omeprazole magnesium [Prilosec OTC] 20 MG tablet,delayed release (DR/EC) 20 mg PO Qty: 0 metoprolol tartrate 25 mg tablet 25 mg PO BID Qty: 0 pravastatin [Pravachol] 20 mg tablet 10 mg PO HS Qty: 0 Trulicity 0.75 mg/0.5 mL pen injector 0.75 mg SUBCUT QWEEK codeine-guaifenesin [Guaifenesin AC] 10-100 mg/5 mL liquid 10 ml PO Q4H PRN (Reason: cough) Qty: 237 0RF Referrals: Gerson Marquez MD [Primary Care Provider] - Stand Alone Forms: Patient Portal/API
== END 2023-05-07 18:51 | disposition home or self-care (01) ==
PROVIDERS: Emergency Provider Emergency Medicine; PCP Family Medicine
DX: S83.92XA Sprain of unspecified site of left knee, initial encounter (principal); W18.30XA Fall on same level, unspecified, initial encounter
CPT/HCPCS: 73562; 99283

== ENCOUNTER → 2023-05-16 11:51 | Outpatient (CLI) | payer MEDICARE, OTHER, SELFPAY ==
[2022-03-12 23:10] VITALS: BMI 29.0
--- NOTE | 2023-05-16 | DI.RAD.S_ITS ---
PROCEDURE: XR CHEST 2V INDICATIONS: CHEST PAIN TECHNIQUE: 2 views of the chest were acquired. COMPARISON: [facility], CR, XR CHEST 1V, 02/02/2022, 20:50. [facility], CR, XR CHEST 2V, 01/03/2022, 12:03. FINDINGS: Surgical changes and devices: Stable CABG postsurgical changes Lungs and pleura: Lungs are clear. No pleural effusions or pneumothorax. Mediastinum: Mediastinal contours are normal. Heart is mildly enlarged. Bones and chest wall: No suspicious bony abnormalities. Soft tissues appear unremarkable. IMPRESSION: No acute cardiopulmonary disease process. Dictated by: Shama Lockhart MD, PhD on 05/16/2023 at 13:40 Approved by: Shama Lockhart MD, PhD on 05/16/2023 at 13:42
[2023-05-16 12:56] LABS: Add Manual Diff / Slide Review NO; Basophils Absolute Auto 100 /uL (0-100); Basophils Percent Auto 0.8 % (0-2); Eosinophils Absolute Auto 300 /uL (0-450); Eosinophils Percent Auto 3.3 % (2-4); Hematocrit 32.7 % (36-46); Hemoglobin 9.9 g/dL (12.0-16.0); Lymphocytes Absolute Auto 2500 /uL (1100-4500); Lymphocytes Percent Auto 25.6 % (25-40); Mean Corpuscular HGB Conc 30.3 % (30-36); Mean Corpuscular Hemoglobin 21.8 PG (26-34); Monocytes Absolute Auto 500 /uL (0-900); Monocytes Percent Auto 4.8 % (3-14); Neutrophils Absolute Auto 6300 /uL (1500-7000); Neutrophils Percent Auto 65.5 % (50-75); Platelet Count 301 X10^3/uL (150-400); Red Blood Cell Count 4.55 X10^6/uL (4.0-5.2); Red Cell Distribution Width 17.1 % (11.6-14.8); White Blood Cell Count 9.6 X10^3/uL (4.5-11.0)
[2023-05-16 14:00] LABS: Alanine Aminotransferase 24 IU/L (<35); Albumin 4.3 g/dL (3.5-5.0); Albumin Globulin Ratio 1.3 (1.0-2.8); Alkaline Phosphatase 116 U/L (38-126); Aspartate Aminotransferase 29 IU/L (14-36); BUN Creatinine Ratio 21.2 (6-22); Blood Urea Nitrogen 24 mg/dL (7-17); Calcium 9.1 mg/dL (8.4-10.2); Carbon Dioxide 24 mmol/L (22-32); Chloride 103 mmol/L (98-107); Estimated Glomerular Filt Rate 50 mL/min (>60); Globulin 3.3 g/dL (1.7-4.1); Glucose 191 mg/dL (80-110); HEMOLYSIS < 15 (0-50); Potassium 4.9 mmol/L (3.4-5.1); Sodium 138 mmol/L (137-145); Total Protein 7.6 g/dL (6.3-8.2)
[2023-05-16 14:04] LABS: Bilirubin Total < 0.1 mg/dL (0.2-1.3)
== END ==
PROVIDERS: PCP Family Medicine; Referring Provider Family Medicine; Visit Provider Family Medicine
DX: I10 Essential (primary) hypertension (principal); E11.9 Type 2 diabetes mellitus without complications; R07.9 Chest pain, unspecified
CPT/HCPCS: 36415; 71046; 80053; 85025

== ENCOUNTER → 2023-06-07 13:25 | Outpatient (CLI) | payer MEDICARE, OTHER, SELFPAY ==
[2022-03-12 23:10] VITALS: BMI 29.0
--- NOTE | 2023-06-07 | DI.MRI.S_ITS ---
PROCEDURE: MR KNEE LT WO CON INDICATIONS: Pain in left knee TECHNIQUE: Noncontrast sagittal PD fast spin echo and T2 fast spin echo with fat saturation, sagittal 3-D FLASH with fat saturation; coronal T1 spin echo and PD fast spin echo with fat saturation, and axial PD fast spin echo with fat saturation through the knee. COMPARISON: [facility], CR, XR KNEE LT 3V, 05/07/2023, 17:45. FINDINGS: Image quality: Degraded by motion artifact. Menisci: There is mild ill-defined intrameniscal high signal intensity within the peripheral 3rd of the medial meniscal body and posterior horn without articular surface extension, consistent with myxoid degeneration. Linear horizontal high T2 signal intensity traverses the middle and inner thirds of the anterior horn medial meniscus, demonstrating inferior articular surface extension, indicating horizontal tearing. Cruciate ligaments: The anterior a cruciate ligament is attenuated and demonstrates moderate T2 signal elevation along its course. Posterior cruciate ligament is intact. Medial structures: The high-grade tearing of the medial collateral ligament at the femoral origin.. Visualized portions of the pes anserinus tendons appear normal. No abnormal bursal fluid. Lateral structures: The lateral collateral ligament demonstrates mild internal and surrounding T2 signal elevation at the femoral origin. The long and short heads of the biceps femoris tendon appear intact. The popliteus tendon appears normal. Iliotibial band appears normal. Anterior structures: The quadriceps and patellar tendons appear intact. Patellar alignment is normal. No femoral trochlear dysplasia or ventral trochlear prominence. No edema in the infrapatellar fat pad. Bones and cartilage: There is mild ill-defined T2 signal elevation within the anterior weight-bearing aspect of the lateral femoral condyle and the posterior weight-bearing aspect of the lateral tibial plateau, consistent with contusion. No displaced fracture. Moderate articular cartilage loss diffusely overlies the weight-bearing aspects of the medial femoral condyle and medial tibial plateau. Patellofemoral compartment articular cartilage l is not well seen. Joint space: There is a small knee joint effusion and a small Arellano's cyst. Normal appearing synovial plicae are incidentally noted. IMPRESSION: 1. Anterior cruciate ligament tear. 2. Lateral meniscal tear. 3. Contusions within the lateral femoral condyle and lateral tibial plateau. 4. Medial collateral ligament tear. 5. Lateral collateral ligament strain. 6. Knee joint effusion and Arellano's cyst. Dictated by: Anamika Jones M.D. on 06/07/2023 at 15:50 Approved by: Anamika Jones M.D. on 06/07/2023 at 15:53
== END ==
PROVIDERS: PCP Family Medicine; Referring Provider Family Medicine; Visit Provider Family Medicine
DX: S83.282A Other tear of lateral meniscus, current injury, left knee, initial encounter (principal); S83.512A Sprain of anterior cruciate ligament of left knee, initial encounter; S83.412A Sprain of medial collateral ligament of left knee, initial encounter; S83.422A Sprain of lateral collateral ligament of left knee, initial encounter; S80.02XA Contusion of left knee, initial encounter; M25.462 Effusion, left knee; M71.22 Synovial cyst of popliteal space [Baker], left knee; M25.562 Pain in left knee
CPT/HCPCS: 73721

== ENCOUNTER → 2023-06-13 10:26 | Outpatient (CLI) | payer MEDICARE, OTHER, SELFPAY ==
[2022-03-12 23:10] VITALS: BMI 29.0
--- NOTE | 2023-06-13 | DI.US.S_ITS ---
PROCEDURE: US ABDOMEN LIMITED INDICATIONS: ELEVATED LIVER ENZYMES TECHNIQUE: Real-time scanning was performed of the abdominal and retroperitoneal organs, with image documentation. COMPARISON: None. FINDINGS: Liver: Liver is normal in size. Diffusely increased liver parenchymal echotexture is seen. No discrete hepatic lesion. Gallbladder: Gallbladder is within normal limits. No sonographic Ariza's sign. Biliary ducts: Intrahepatic bile ducts are non-dilated. Extrahepatic bile duct caliber measures 2.7 mm. Normal is 6-7 mm or less in diameter, or 10 mm or less post-cholecystectomy. Pancreas: Visualized portions of the pancreas are sonographically normal. Miscellaneous: No free abdominal fluid. IMPRESSION: 1. Hepatic steatosis, no discrete hepatic lesion. 2. Normal appearing gallbladder. No biliary ductal dilatation. Dictated by: Malik Cadena M.D. on 06/13/2023 at 13:32 Approved by: Malik Cadena M.D. on 06/13/2023 at 13:32
== END ==
PROVIDERS: PCP Family Medicine; Referring Provider Family Medicine; Visit Provider Family Medicine
DX: R74.01 Elevation of levels of liver transaminase levels (principal); K76.0 Fatty (change of) liver, not elsewhere classified
CPT/HCPCS: 76705

== ENCOUNTER → 2023-08-16 14:28 | Outpatient (CLI) | payer MEDICARE, OTHER, SELFPAY ==
[2022-03-12 23:10] VITALS: BMI 29.0
--- NOTE | 2023-08-16 | DI.RAD.S_ITS ---
PROCEDURE: XR FEMUR RT MIN 2V INDICATIONS: Pain in right thigh TECHNIQUE: 2 views of the femur were acquired. COMPARISON: None. FINDINGS: Bones: No fractures or dislocations. No suspicious bony lesions. Mild osteoarthritic changes in hip and knee. Soft tissues: No suspicious soft tissue calcifications or masses. Severe atherosclerotic calcifications. Postsurgical changes in the medial aspect of the knee. IMPRESSION: 1. No acute osseous abnormalities. 2. Severe atherosclerosis. 3. Postsurgical changes in the medial aspect of the thigh. Dictated by: Nubia Bach M.D. on 08/16/2023 at 16:38 Approved by: Nubia Bach M.D. on 08/17/2023 at 8:18
== END ==
PROVIDERS: PCP Family Medicine; Referring Provider Family Medicine; Visit Provider Family Medicine
DX: M79.651 Pain in right thigh (principal)
CPT/HCPCS: 73552

== ENCOUNTER → 2023-09-21 14:44 | Outpatient (CLI) | payer MEDICARE, OTHER, SELFPAY ==
[2022-03-12 23:10] VITALS: BMI 29.0
--- NOTE | 2023-09-21 | DI.US.S_ITS ---
PROCEDURE: US ABD AORTA ANEURYSM SCREEN INDICATIONS: PERIPHERAL VASCULAR DISEASE TECHNIQUE: Real time scanning was performed of the aorta and iliac arteries, with image documentation. COMPARISON: [facility], , US ABDOMEN LIMITED, 06/13/2023, 10:33. [facility], , ABDOMEN COMPLETE, 08/03/2016, 8:36. FINDINGS: Aorta: Proximal aortic diameter measures 2.3 cm. Mid-aorta measures 1.4 cm. Distal aortic diameter is 1.5 cm. Iliac arteries: Right common iliac artery measures 1.1 cm. Left common iliac artery measures 1.1 cm. IMPRESSION: Negative for aneurysm. Dictated by: Chandrakant Hall M.D. on 09/21/2023 at 17:24 Approved by: Chandrakant Hall M.D. on 09/21/2023 at 17:25
--- NOTE | 2023-09-21 | DI.US.S_ITS ---
PROCEDURE: US ARTERIAL DUPLEX LE BI INDICATIONS: PERIPHERAL VASCULAR DISEASE TECHNIQUE: Color and pulse Doppler interrogation was performed of both lower extremity arterial systems, with image documentation. COMPARISON: [facility], , ARTERIAL LOW.EXTREMITY UNILAT., 09/21/2016, 11:32. FINDINGS: Right lower extremity: Common femoral artery: 140 cm/sec, with triphasic flow. Deep femoral artery: 68 cm/sec, with biphasic flow. Proximal superficial femoral artery: 103 cm/sec, with triphasic flow. Mid superficial femoral artery: 82 cm/sec, with biphasic flow. Distal superficial femoral artery: 78 cm/sec, with biphasic flow. Popliteal artery: 70 cm/sec, with biphasic flow. Posterior tibial artery: 63 cm/sec, with biphasic flow. Anterior tibial artery/dorsalis pedis: 32 cm/sec, with monophasic flow. Hernandez-scale imaging description: Mild atheromatous plaque is present throughout. No focal hemodynamically significant stenosis visualized on grayscale images. Left lower extremity: Common femoral artery: 120 cm/sec, with triphasic flow. Deep femoral artery: 62 cm/sec, with biphasic flow. Proximal superficial femoral artery: 102 cm/sec, with biphasic flow. Mid superficial femoral artery: 97 cm/sec, with biphasic flow. Distal superficial femoral artery: 107 cm/sec, with biphasic flow. Popliteal artery: 98 cm/sec, with biphasic flow. Posterior tibial artery: 58 cm/sec, with biphasic flow. Anterior tibial artery/dorsalis pedis: Occluded near the ankle. Patent superiorly with monophasic waveforms 9.3 cm/s. Hernandez-scale imaging description: The anterior tibial artery appears occluded at the ankle. More superiorly, there are scattered atheromatous plaques throughout the left lower extremity arteries. IMPRESSION: 1. Occluded distal left posterior tibial artery with probable inflow stenosis more superiorly. 2. Monophasic waveforms of the right posterior tibial arteries suggest inflow stenosis, although this is not appreciated by grayscale imaging. If further characterization and evaluation for possible therapeutic options is warranted, CTA with bilateral runoff is recommended. Dictated by: Kitty Putnam M.D. on 09/22/2023 at 11:16 Approved by: Kitty Putnam M.D. on 09/22/2023 at 12:21
== END ==
PROVIDERS: PCP Family Medicine; Referring Provider Family Medicine; Visit Provider Family Medicine
DX: Z13.6 Encounter for screening for cardiovascular disorders (principal); I73.9 Peripheral vascular disease, unspecified
CPT/HCPCS: 76706; 93925

== ENCOUNTER → 2023-09-22 15:55 | Outpatient (CLI) | payer MEDICARE, OTHER, SELFPAY ==
[2022-03-12 23:10] VITALS: BMI 29.0
--- NOTE | 2023-09-22 | DI.MG.S_ITS ---
BILATERAL DIGITAL SCREENING MAMMOGRAM 3D/2D WITH CAD: 09/22/2023 CLINICAL: Routine screening. Comparison is made to exams dated: 12/11/2020 mammogram, 10/08/2019 mammogram, and 10/01/2018 mammogram - [facility]. There are scattered areas of fibroglandular density in both breasts (category b / 25%-50% glandular tissue). Current study was also evaluated with a Computer Aided Detection (CAD) system. There are benign post operative findings in the right breast. No significant masses, calcifications, or other findings are seen in either breast. There has been no significant interval change. IMPRESSION: BENIGN There is no mammographic evidence of malignancy. A 1 year screening mammogram is recommended. Based on the Tyrer Cuzick model (a risk assessment model) the patient's lifetime risk is 2.4% and her 10 year risk is 0.0%. According to the ACR, ACS, and NCCN guidelines, an annual breast MRI exam along with mammogram is recommended if the patient's lifetime risk is 20% or greater. This exam was interpreted at Station ID: [id number]. NOTE: For mammograms, a report in lay terms will be sent to the patient. Approximately 15% of breast malignancies will not be visualized mammographically. In the management of a palpable breast mass, a negative mammogram must not discourage biopsy of a clinically suspicious lesion. Electronically Signed By: Lluvia Cordoba M.D., PH.D miryam/ceci:09/24/2023 13:50:37 letter sent: Normal Exam ACR BI-RADS Category 2: Benign Finding(s) [id number]
== END ==
PROVIDERS: PCP Family Medicine; Referring Provider Family Medicine; Visit Provider Family Medicine
DX: Z12.31 Encounter for screening mammogram for malignant neoplasm of breast (principal)
CPT/HCPCS: 77063; 77067

== ENCOUNTER → 2024-04-15 12:19 | Outpatient (CLI) | payer MEDICARE, OTHER, SELFPAY ==
[2022-03-12 23:10] VITALS: BMI 29.0
--- NOTE | 2024-04-15 | DI.RAD.S_ITS ---
PROCEDURE: XR HIP W PEL IF DONE RT 2V INDICATIONS: RIGHT HIP PAIN TECHNIQUE: AP pelvis with lateral view(s) of the right hip(s). COMPARISON: [facility], , XR HIP W PEL IF DONE LT 2V, 08/10/2022, 12:28. FINDINGS: Bones: No fractures or dislocations. Pelvic ring appears intact. No suspicious bony lesions. Moderate bilateral degenerative hip joint space narrowing. Soft tissues: The visualized bowel gas pattern is normal. No suspicious soft tissue calcifications. IMPRESSION: No visualized acute fracture or dislocation. However, if clinical concern and/or pain persist, short interval imaging followup in 7-10 days is recommended, as occult injury cannot be definitively excluded. Dictated by: Adela Goel M.D. on 04/15/2024 at 17:33 Approved by: Adela Goel M.D. on 04/15/2024 at 17:34
== END ==
PROVIDERS: PCP Family Medicine; Referring Provider Family Medicine; Visit Provider Family Medicine
DX: M25.551 Pain in right hip (principal)
CPT/HCPCS: 73502

== ENCOUNTER → 2024-04-25 07:52 | Outpatient (CLI) | payer MEDICARE, OTHER, SELFPAY ==
[2022-03-12 23:10] VITALS: BMI 29.0
--- NOTE | 2024-04-25 | DI.ECHO.S_ITS ---
[facility] : : [address] : : [place] : : [id number] : : Phone: [phone] Echocardiogram Report + + :Name: YANIRA JEFF Study Date: 04/25/2024 Height: 62 in : :[facility] ReadingLocation: Weight: 158 lb : : Gender: Female BSA: 1.7 m2 : :: 1945 Age: 79 yrs BP: 140/72 mmHg: :Reason For Study: DIZZINESS AND GIDDINESS : :Ordering Physician: MANOLO, : :JIMENEZ Guo Performed By: David Handley : :Referring: JIMENEZ FRENCH : + + Interpretation Summary The ejection fraction is estimated to be 60-65%. There is mild aortic regurgitation. The right ventricular systolic pressure is estimated to be at least 27 mmHg based on an estimated right atrial pressure of 3 mm Hg. There is mild mitral regurgitation. Procedure: A two-dimensional transthoracic echocardiogram with color flow and Doppler was performed. The study quality was technically adequate. There is no prior echocardiogram noted for this patient. The patient was in sinus rhythm with heart rates between 76-84 bpm during the exam. Left Ventricle: The left ventricle is normal in size. Left ventricular wall thickness is mildly increased. The ejection fraction is estimated to be 60- 65%. Left ventricular wall motion is normal. Right Ventricle: The right ventricle is normal size. The right ventricular systolic function is normal. Atria: The left atrial size is normal. Right atrial size is normal. The interatrial septum grossly appears intact with no obvious evidence for an atrial septal defect. Mitral Valve: The mitral valve is normal in structure and function. There is no mitral valve stenosis. There is mild mitral regurgitation. Aortic Valve: The aortic valve is not well visualized. The aortic valve is grossly normal. There is no aortic valve stenosis. There is mild aortic regurgitation. Tricuspid Valve: The tricuspid valve is normal. There is no tricuspid stenosis. There is a trace or physiologic amount of tricuspid regurgitation. The right ventricular systolic pressure is estimated to be at least 27 mmHg based on an estimated right atrial pressure of 3 mm Hg. Pulmonic Valve: The pulmonic valve is not well visualized. There is no pulmonic valvular stenosis. There is no pulmonic valvular regurgitation. Great Vessels: The aortic root is normal size. The dimensions of the ascending aorta are normal. The IVC is of normal diameter and collapses greater than 50% with a sniff. This suggests a low right atrial pressure of 3 mm Hg. Pericardium/ Pleura There is no pericardial effusion. There is no pleural effusion. MMode/2D Measurements & Calculations LVIDd: 5.0 cm LVOT diam: 1.9 cm LVIDs: 3.1 cm Ao root diam: 3.1 cm FS: 38.5 % asc Aorta Diam: 3.5 cm IVSd: 1.00 cm LVPWd: 1.2 cm LV hendricks. diameter/BSA (cm/m^2): 2.9 LV sys. diameter/BSA (cm/m^2): 1.8 LA A2 area: 14.6 cm2 RA long axis: 3.8 cm LA A4 area: 20.5 cm2 RA area: 14.0 cm2 LA length (vol): 6.0 cm RA vol: 43.7 ml LA vol: 42.5 ml RA : 25.2 ml/m2 LA vol index: 24.6 ml/m2 IVC diam: 1.5 cm RVD1 (basal): 3.9 cm RVD2 (mid): 3.2 cm TAPSE: 1.8 cm Doppler Measurements & Calculations Ao V2 max: 139.7 cm/sec LVOT Max Freddy: 98.2 cm/sec Ao V2 mean: 98.5 cm/sec LV V1 max P.9 mmHg Ao max P.8 mmHg LV V1 VTI: 21.2 cm Ao mean P.4 mmHg JARED(I,D): 2.1 cm2 Ao V2 VTI: 30.7 cm JARED(V,D): 2.1 cm2 sev ratio: 0.69 JARED indexed to BSA (cm^2/m^2): 1.2 AI P1/2t: 429.7 msec AI dec slope: 250.7 cm/sec2 MV E max freddy: 78.5 cm/sec TR max freddy: 243.5 cm/sec MV A max freddy: 99.0 cm/sec TR max P.7 mmHg MV E/A: 0.79 PA V2 max: 120.3 cm/sec Med Peak E' Freddy: 7.4 cm/sec PA V2 mean: 81.6 cm/sec E/E' med: 10.6 PA mean P.9 mmHg Lat Peak E' Freddy: 7.0 cm/sec PA pr(Accel): 46.5 mmHg E/E' lat: 11.2 E/e' average: 10.9 MV dec time: 0.17 sec SVLVOT): 63.3 ml Reading Physician:01:34 PM
--- NOTE | 2024-04-25 | DI.US.S_ITS ---
PROCEDURE: US CAROTID DOPPLER BI INDICATIONS: DIZZINESS AND GIDDINESS TECHNIQUE: Color and pulse Doppler interrogation was performed of both carotid systems, with image documentation and velocity measurements. COMPARISON: None. FINDINGS: Stenosis calculations are based on SRU (Society of Radiologists in Ultrasound) criteria. Right side: Brachial blood pressure: 148/64 mm Hg. Common carotid artery peak systolic velocity: 50 cm/sec. Internal carotid artery peak systolic velocity: 71 cm/sec. Internal carotid artery end diastolic velocity: 22 cm/sec. External carotid artery peak systolic velocity: 97 cm/sec. ICA/CCA peak systolic ratio: 1.4 . Hernandez scale imaging description: Mild atherosclerotic plaque Percent internal carotid artery stenosis: Less than 50% . Vertebral artery: Flow direction is antegrade. Left side: Brachial blood pressure: 141/64 mm Hg. Common carotid artery peak systolic velocity: 67 cm/sec. Internal carotid artery peak systolic velocity: 131 cm/sec. Internal carotid artery end diastolic velocity: 26 cm/sec. External carotid artery peak systolic velocity: 85 cm/sec. ICA/CCA peak systolic ratio: 1.9 . Hernandez scale imaging description: Mild atherosclerotic plaque. Percent internal carotid artery stenosis: 50-69% stenosis . Vertebral artery: Flow direction is antegrade. IMPRESSION: Less than 50% stenosis of the right internal carotid artery by peak systolic velocity criteria. 50-69% stenosis of the left internal carotid artery by peak systolic velocity criteria. Dictated by: Deng Greenberg M.D. on 04/25/2024 at 10:09 Approved by: Deng Greenberg M.D. on 04/25/2024 at 10:12
== END ==
PROVIDERS: PCP Family Medicine; Referring Provider Family Medicine; Visit Provider Family Medicine
DX: I65.23 Occlusion and stenosis of bilateral carotid arteries (principal); I08.0 Rheumatic disorders of both mitral and aortic valves; I24.9 Acute ischemic heart disease, unspecified; R42 Dizziness and giddiness
CPT/HCPCS: 93306; 93880

== ENCOUNTER → 2024-08-20 13:48 | Outpatient (CLI) | payer MEDICARE, OTHER, SELFPAY ==
[2022-03-12 23:10] VITALS: BMI 29.0
--- NOTE | 2024-08-20 13:51 | DI.RAD.S_ITS ---
PROCEDURE: XR LUMBAR SPINE 2-3V INDICATIONS: Pain in right hip TECHNIQUE: 3 views of the lumbar spine were acquired. COMPARISON: [facility], CR, XR LUMBAR SPINE 2-3V, 08/10/2022, 12:28. FINDINGS: Bones: 5 [id number] vertebrae are present. There is normal bony alignment. Multilevel degenerative changes including disc space narrowing and foraminal narrowing with the latter most severe at L5-S1. No vertebral body compression fractures. No suspicious bony lesions. Soft tissues: Overlying bowel gas pattern is normal. No suspicious soft tissue calcifications. IMPRESSION: Degenerative changes with most prominent foraminal narrowing at L5-S1. Overall appearance is stable. Dictated by: Adela Goel M.D. on 08/20/2024 at 18:14 Approved by: Adela Goel M.D. on 08/20/2024 at 18:15
--- NOTE | 2024-08-20 13:51 | DI.RAD.S_ITS ---
PROCEDURE: XR HIP W PEL IF DONE RT 2V INDICATIONS: Pain in right hip TECHNIQUE: AP pelvis with lateral view(s) of the right hip(s). COMPARISON: [facility], , XR HIP W PEL IF DONE RT 2V, 04/15/2024, 11:40. FINDINGS: Bones: No fractures or dislocations. Pelvic ring appears intact. No suspicious bony lesions. Bilateral hip arthritic change. Soft tissues: The visualized bowel gas pattern is normal. No suspicious soft tissue calcifications. IMPRESSION: No visualized acute fracture or dislocation. However, if clinical concern and/or pain persist, short interval imaging followup in 7-10 days is recommended, as occult injury cannot be definitively excluded. Moderate bilateral hip arthritic change. Dictated by: Adela Goel M.D. on 08/20/2024 at 18:14 Approved by: Adela Goel M.D. on 08/20/2024 at 18:14
--- NOTE | 2024-08-20 13:51 | DI.RAD.S_ITS ---
PROCEDURE: XR CERVICAL SPINE 2V OR 3V INDICATIONS: Cervicalgia TECHNIQUE: 4 view(s) of the cervical spine were acquired. COMPARISON: None. FINDINGS: Bones: Moderate degenerative changes, with particular disc space height loss at C5-C6 and C6-C7. There is straightening of the normal cervical lordosis. Vertebral body heights are well maintained. No traumatic subluxation. Soft tissues: Vascular calcifications. No pathologic prevertebral soft tissue swelling. IMPRESSION: Moderate spondylosis. No acute radiographic abnormality. If there is high concern for further derangement, consider MRI evaluation. Dictated by: Hector Ashby M.D. on 08/20/2024 at 16:09 Approved by: Hector Ashby M.D. on 08/20/2024 at 16:10
== END ==
LOC: RAD 13:50
PROVIDERS: PCP Family Medicine; Referring Provider Family Medicine; Visit Provider Family Medicine
DX: M48.07 Spinal stenosis, lumbosacral region (principal); M47.812 Spondylosis without myelopathy or radiculopathy, cervical region; M54.50 Low back pain, unspecified; M54.2 Cervicalgia; M25.551 Pain in right hip
CPT/HCPCS: 72040; 72100; 73502